=== PATIENT | female | born 1945 | race Caucasian/White ===

== ENCOUNTER 2016-11-29 11:19 | Emergency (ER) ==
[~2016-11-29 11:19] MED LIST: ANECTINE IVP STA
[2016-11-29] MEDS ORDERED: SODIUM CHLORIDE 1,000 ML IV STA (11:25)
[2016-11-29] MEDS ORDERED: DUONEB NEB STA (11:26)
[2016-11-29] MEDS ORDERED: XOPENEX 1.25 MG NEB STA (11:26)
[2016-11-29 11:28] VITALS: TEMP 98.4; BMI 25.9
[2016-11-29] MEDS ORDERED: ROCEPHIN 1 GM in SODIUM CHLORIDE 100 ML IV STA (11:32)
[2016-11-29] MEDS ORDERED: URO-JET MUCOUSMEMB STA (11:32)
[2016-11-29 11:56] LABS: BASOPHILS # (AUTO) 0.1 K/uL (0-0.2); BASOPHILS % (AUTO) 0.9 % (0.0-3.0); EOSINOPHILS # (AUTO) 0.1 K/ul (0.0-0.7); EOSINOPHILS % (AUTO) 0.9 % (0.0-7.0); HEMATOCRIT 48.8 % (37.0-47.0); HEMOGLOBIN 13.9 g/dl (12.0-16.0); IMMATURE GRANULOCYTE % (AUTO) 2.2 % (0.0-5.0); LYMPHOCYTES # (AUTO) 1.4 K/uL (0.60-3.4); LYMPHOCYTES % (AUTO) 18.3 (10.0-50.0); MEAN CORPUSCULAR HEMOGLOBIN 31.7 pg (27.0-31.0); MEAN CORPUSCULAR HGB CONC 28.5 (31.8-35.4); MEAN CORPUSCULAR VOLUME 111.4 fl (81.0-99.0); MONOCYTES # (AUTO) 0.5 K/uL (0.4-2.0); MONOCYTES % (AUTO) 6.6 (0-10); NEUTROPHILS # (AUTO) 5.4 K/ul (2.0-6.9); NEUTROPHILS % (AUTO) 71.1; PLATELET COUNT 184 10^3/uL (140-440); RED BLOOD COUNT 4.38 10^6/ul (4.20-5.40); WHITE BLOOD COUNT 7.63 K/ul (4.6-10.2)
[2016-11-29 12:21] LABS: ANISOCYTOSIS NOT PRESENT (NOT PRESENT)
[2016-11-29 12:22] LABS: RBC MORPHOLOGY COMMENT Y; STOMATOCYTES 2+ (NOT PRESENT)
[2016-11-29] MEDS ORDERED: ROCEPHIN ONE (12:22)
[2016-11-29] MEDS ORDERED: VERSED ONE (12:23)
[2016-11-29] MEDS ORDERED: NORCURON ONE (12:24)
[2016-11-29] MEDS ORDERED: VERSED IVP STA (12:25)
[2016-11-29] MEDS ORDERED: DIPRIVAN 20 ML VIAL IVP STA (12:25)
[2016-11-29] MEDS ORDERED: EPHEDRINE SULFATE IVP STA (12:25)
[2016-11-29] MEDS ORDERED: ANECTINE IVP STA ×2 (12:25)
--- NOTE | 2016-11-29 12:28 | ED.PDOC ---
General ED Provider: Dr. DAVID MAIN-ER Chief Complaint: Fall Stated Complaint: she has been confused--not breathing well--arrived cyanotic -- o2 sats 60s Time Seen by Physician: 11:20 Mode of Arrival: Ambulance Information Source: Patient, Family, EMT Exam Limitations: No limitations Primary Care Provider: ANA VILLATORO Nursing and Triage Documentation Reviewed and Agree: Yes Respiratory Complaint Exam - Shortness of Air Complaint/Exam Onset/Duration: unknown Symptoms Are: Still present Timing: Constant Initial Severity: Moderate Current Severity: Severe Character: Reports: Dyspnea at rest, Dyspnea on exertion Aggravating: Reports: None Alleviating: Reports: EMS treatment, Oxygen Associated Signs and Symptoms: Reports: Rapid breathing, Labored breathing Related History: Reports: Similar episode History of Healthcare-Acquired Pneumonia: No Pseudomonas Risk Factors: Reports: Chronic Lung Disease Tuberculosis Risk Factors: Reports: Chronic Resp. Faliure Home Oxygen Use: Yes Recent Stress Test: No Recent Echo/LV Function: No Respiratory Distress: Severe Stridor Present: No Tracheal Deviation: No Subcutaneous Emphysema: No Accessory Muscle Use: Yes Diminished Breath Sounds: No Prolonged Expiratory Phase: Yes Unable to Speak Full Sentences: Yes Fatigue: Yes Leg Swelling: No Lola's Sign Present: No Grunting Respirations: No Kussmaul Respirations: No Differential Diagnoses: COPD Exacerbation Quality Indicator For Non-Traumatic Chest Pain/Syncope: EKG Performed Quality Indicators For Pneumonia/CAP: Blood Cultures-SCU admit, Antibiotics in 6hr-admit, SpO2 assessed, Empiric Antibiotic Rx, Vital signs, Mental status assessed Review of Systems - Review Of Systems Constitutional: Reports: No symptoms Eyes: Reports: No symptoms Ears, Nose, Mouth, Throat: Reports: No symptoms Respiratory: Reports: Short of air Cardiac: Reports: No symptoms GI: Reports: No symptoms : Reports: No symptoms Musculoskeletal: Reports: No symptoms Skin: Reports: No symptoms Neurological: Reports: Cognitive dysfunction Endocrine: Reports: No symptoms Hematologic/Lymphatic: Reports: No symptoms All Other Systems: Reviewed and Negative Past Medical History - Past Medical History Endocrine: Reports: Unknown Cardiovascular: Reports: Unknown Respiratory: Reports: COPD Hematological: Reports: Unknown Gastrointestinal: Reports: Unknown Genitourinary: Reports: Unknown Neuro/Psych: Reports: Unknown Musculoskeletal: Reports: Unknown Cancer: Reports: Unknown Last Menstrual Period: menopause - Surgical History General Surgical History: Reports: Unknown - Family History Family History: Reports: Unknown - Social History Smoking Status: Current some day smoker, Light tobacco smoker Hx Substance Use: No Alcohol Screening: None Lives: With family Physical Exam - Physical Exam Appearance: Ill-appearing Eyes: FAVIOLA, EOMI, Conjunctiva clear ENT: Ears normal Neck: Supple Respiratory: Breath sounds equal, Breath sounds diminished, Retractions Cardiovascular: RRR GI/: Soft, Nontender, No masses, Bowel sounds normal, No Organomegaly Musculoskeletal: Normal strength, ROM intact, No edema, No calf tenderness Skin: Warm, Dry, Normal color Neurological: Sensation intact, Motor intact, Reflexes intact, Cranial nerves intact, Alert, Oriented Psychiatric: Affect appropriate, Mood appropriate Procedures - Intubation Indication: Present: Respiratory Insufficiency, Altered Mental Status Time of Intubation: 12:30 Type of Tube Used: Endotracheal Cricoid Pressure Used: Yes Tube Guevara Used: Yes Number of Attempts: 1 Suction Used: Yes Glidescope Used: Yes CO2 Detector Used: Yes Lung Sounds Equal Bilaterally: Yes Intubation Complications: Present: No complications Tube Inserted By: anushka jose Tube Placement Verified by X-ray: Yes Critical Care Note - Critical Care Note Total Time (mins): 30 Course - Course Hematology/Chemistry: 11/29/16 11:40 Orders, Labs, Meds: Lab Review 11/29/16 11:40 WBC 7.63 RBC 4.38 Hgb 13.9 Hct 48.8 H MCV 111.4 H MCH 31.7 H MCHC 28.5 L RDW Coeff of Tessa 12.6 Plt Count 184 Immature Gran % (Auto) 2.2 Neut % (Auto) 71.1 Lymph % (Auto) 18.3 [place] % (Auto) 6.6 Eos % (Auto) 0.9 Baso % (Auto) 0.9 Immature Gran # (Auto) 0.2 Neut # 5.4 Lymph # 1.4 [place] # 0.5 Eos # 0.1 Baso # 0.1 Macrocytosis 2+ Stomatocytes 2+ RBC Morph Comment Y Lactic Acid 13.7 B-Natriuretic Peptide 121 H Procalcitonin < 0.05 Orders Category Date Time Status ABG DRAW REQUEST Stat CARDIO 11/29/16 11:24 Ordered EKG-(ED ONLY) Stat CARDIO 11/29/16 11:24 Ordered NEBULIZER TREATMENT Stat CARDIO 11/29/16 11:26 Ordered TRANSFER TO OUTSIDE FACILITY .TO [facility] 11/29/16 12:41 Active ([place]) WRITE TRANSFER/SBAR NOTE ONCE CARE 11/29/16 12:42 Active DISCHARGE ASSESSMENT ONCE DISCHARGE 11/29/16 12:42 Active WRITE DISCHARGE NOTE ONCE DISCHARGE 11/29/16 12:42 Active [place] [ED CATHETER INSERTION AND CARE] .ONCE EMERGENCY 11/29/16 11:32 Active IV [ED IV/MEDIPORT/POWERPORT] .ONCE EMERGENCY 11/29/16 11:25 Active ABG Stat LAB 11/29/16 11:24 Ordered B-TYPE NATRIURETIC PEPTIDE Stat LAB 11/29/16 11:40 Completed BLOOD CULTURE Stat LAB 11/29/16 11:40 Received CBC W/ AUTO DIFF Stat LAB 11/29/16 11:40 Completed COMPREHENSIVE METABOLIC PANEL Stat LAB 11/29/16 11:40 Received CREATINE KINASE Stat LAB 11/29/16 11:40 Received D-DIMER Stat LAB 11/29/16 11:40 Received LACTIC ACID Stat LAB 11/29/16 11:40 Completed PROCALCITONIN Stat LAB 11/29/16 11:40 Completed RBC MORPHOLOGY Stat LAB 11/29/16 11:40 Completed TROPONIN I Stat LAB 11/29/16 11:40 Received URINALYSIS C & S IF INDICATED Stat LAB 11/29/16 11:25 Uncollected 0.9 % Sodium Chloride [Saline Flush] MEDS 11/29/16 11:25 Active 1 syr IVF PRN PRN Ceftriaxone Sodium [Rocephin] MEDS 11/29/16 12:22 Discontinued 1 gm .ROUTE .STK-MED ONE Ceftriaxone Sodium [Rocephin] 1 gm MEDS 11/29/16 11:32 Discontinued 0.9 % Sodium Chloride [Sodium Chloride] 100 ml IV ONCE Ipratropium/Albuterol Neb [Duoneb] MEDS 11/29/16 11:26 Discontinued 1 vial NEB ONCE STA Levalbuterol HCl [Xopenex 1.25 mg] MEDS 11/29/16 11:26 Discontinued 1 vial NEB ONCE STA Lidocaine HCl [Uro-Jet] MEDS 11/29/16 11:32 Discontinued 10 ml MUCOUSMEMB ONCE STA Midazolam HCl Inj [Versed] MEDS 11/29/16 12:23 Discontinued 5 mg .ROUTE .STK-MED ONE Sodium Chloride 0.9% [Sodium Chloride] 1,000 ml MEDS 11/29/16 11:25 Active IV 100 mls/hr Vecuronium [place] [Norcuron] MEDS 11/29/16 12:24 Discontinued 10 mg .ROUTE .STK-MED ONE CT ABDOMEN/PELVIS WO CONTRAST Stat RADS 11/29/16 11:[address] CERVICAL SPINE W/O CONTRAST Stat RADS 11/29/16 11:[address] CHEST W/O CONTRAST Stat RADS 11/29/16 11:[address] HEAD W/O CONTRAST Stat RADS 11/29/16 11:[address] LUMBAR SPINE W/O CONTRAST Stat RADS 11/29/16 11:[address] PELVIS W/O CONTRAST Stat RADS 11/29/16 11:[address] THORACIC SPINE W/O CONTRAST Stat RADS 11/29/16 11:27 Stop Req CXR [CHEST, 1V AP ONLY] Stat RADS 11/29/16 12:15 Ordered Medications Generic Name Dose Route Start Last Admin Trade Name Freq PRN Reason Stop Dose Admin Sodium Chloride 1,000 mls @ 100 mls/hr 11/29/16 11:25 11/29/16 11:44 Sodium Chloride IV 11/29/16 21:24 100 mls/hr .Q10H STA Administration Sodium Chloride 1 syr 11/29/16 11:25 Saline Flush IVF PRN PRN To flush IV Discontinued Medications Generic Name Dose Route Start Last Admin Trade Name Freq PRN Reason Stop Dose Admin Albuterol/Ipratropium 1 vial 11/29/16 11:26 Duoneb NEB 11/29/16 11:27 ONCE STA Ceftriaxone Sodium 1 gm/ 100 mls @ 100 mls/hr 11/29/16 11:32 Sodium Chloride IV 11/29/16 12:31 ONCE STA Levalbuterol HCl 1 vial 11/29/16 11:26 Xopenex 1.25 Mg NEB 11/29/16 11:27 ONCE STA Lidocaine HCl 10 ml 11/29/16 11:32 Uro-Jet MUCOUSMEMB 11/29/16 11:33 ONCE STA Vital Signs: Temp Pulse Resp BP Pulse Ox 11/29/16 12:36 105 H 121/90 100 11/29/16 11:19 98.4 F 95 H 32 H 135/80 71 L Departure - Departure Time of Disposition: 12:45 Disposition: TSF SHORT-TRM HOSP Discharge Problem: Acute respiratory failure Qualifiers: Respiratory failure complication: hypercapnia Qualifier Code: (J96.02) Acute respiratory failure with hypercapnia Instructions: COPD (Chronic Obstructive Pulmonary Disease) (ED) Condition: Stable Pt referred to PMD for follow-up: Yes Allergies/Adverse Reactions: Allergies Sulfa (Sulfonamide Antibiotics) Adverse Reaction (Verified 11/29/16 11:42) Home Medications: Ambulatory Orders Albuterol Sulfate [Proair Hfa] 2 puff INH QID PRN 06/04/14 Docusate Sodium [Colace] 100 mg PO DAILY 06/04/14 Fluticasone/Salmeterol 500/50 [Advair 500-50 Diskus] 1 puff INH BID 06/04/14 Ipratropium [place] [Atrovent Hfa] 2 puff IH QID 06/04/14 Levothyroxine Sodium [Synthroid] 112 mcg PO DAILY 06/04/14 Oxybutynin Chloride [Ditropan Xl] 5 mg PO DAILY 06/04/14 Aspirin [Aspirin EC] 81 mg PO DAILYWM 06/05/14 Calcium Carb & Citrate/Vit D3 [Calcium + Vitamin D3 Caplet] 1 each PO BID Transfer Form Completed: Yes Disposition Discussed With: Family
[2016-11-29 12:40] VITALS: BP 121/90
--- NOTE | 2016-11-29 12:44 | ED.PDOC ---
Procedures - Intubation Time of Intubation: 12:30 Medications: Yes: Succinylcholine (80mg), Versed (2.5mg), Propofol (30mg), Other (10mg ivp 1231) Type of Tube Used: Endotracheal Tube Size: 7 Cricoid Pressure Used: No Tube Guevara Used: Yes Position of Tube at Lip: 21cm Number of Attempts: 1 Suction Used: Yes Glidescope Used: Yes ([place]) CO2 Detector Used: Yes Lung Sounds Equal Bilaterally: Yes Intubation Complications: Present: No complications Tube Inserted By: tabby otero CRNA Tube Placement Verified by X-ray: Yes Conscious Sedation - Pre-op Assessment Weight: 156 lb 4.8 oz Surgical History: TONSILS/ADENOIDS - Medical History Past Medical History: Hypertension, Thyroid, COPD, Migraines Other History: OVERACTIVE BLADDER. - Physical Exam Heart Rate/Rhythm: Regular Rhythm
[2016-11-29 12:53] LABS: ALANINE AMINOTRANSFERASE 10 U/L (12-78); ALBUMIN 3.7 g/dL (3.4-5.0); ALBUMIN/GLOBULIN RATIO 1.06; ALKALINE PHOSPHATASE 68 U/L (53-141); ANION GAP 14.4; ASPARTATE AMINO TRANSFERASE 15 U/L (15-37); BILIRUBIN,TOTAL 0.67 mg/dL (0.00-1.20); BLOOD UREA NITROGEN 13 mg/dL (7-18); BUN/CREATININE RATIO 24.07; CALCIUM 9.1 mg/dL (8.2-10.2); CHLORIDE 89 mmol/L (98-107); CREATINE KINASE 29 U/L; CREATININE 0.54 mg/dL (0.60-1.30); GLUCOSE 163 mg/dL (82-115); POTASSIUM 4.4 mmol/L (3.5-5.10); SODIUM 144 mmol/L (136-145); TOTAL PROTEIN 7.2 g/dL (5.8-8.1)
[2016-11-29 12:59] LABS: CARBON DIOXIDE 45 mmol/L (23-31)
[2016-11-29 13:06] LABS: ABG PH 7.129 (7.35-7.45)
--- NOTE | 2016-11-29 13:12 | DI ---
EXAM: Single view chest. HISTORY: Respiratory failure COMPARISON: 06/05/2014. FINDINGS: Endotracheal tube is in place with tip 6.2 cm above the shante. The heart appears on the upper limits of normal in size. The pulmonary vascularity is accentuated by the patient rotation. The bilateral costophrenic angles are blunted. Bibasilar patchy airspace opacities are present. No evidence of pneumothorax. IMPRESSION: Satisfactory appearing endotracheal tube. Probable small bilateral pleural effusions with associated atelectasis or pneumonia.
--- NOTE | 2016-11-29 13:15 | CT ---
Exam: CT brain without contrast Clinical indication: Fall with head injury. Comparison: None available. TECHNIQUE: Axial unenhanced CT images from the skull base through the brain were obtained. Coronal and sagital reformats were performed. Findings: There is no evidence of intra or extra-axial hemorrhage. Patient is intubated. There is mild periventricular hypodensities consistent with mild chronic small vessel ischemic contreras es.There is no evidence of mass, infarct or midline shift. The ventricles and basilar cisterns are within normal limits. The visualized paranasal sinuses and mastoid air cells are clear. The visualized bony structures are unremarkable. Impression: 1. No acute intracranial abnormality. 2. Mild chronic small vessel ischemic changes.
--- NOTE | 2016-11-29 13:17 | CT ---
EXAM: CT cervical spine without contrast HISTORY: Fall. TECHNIQUE: Multi-slice transaxial helical with coronal and sagittal reformatted views. COMPARISON: None FINDINGS: There is accentuated cervical lordosis. The visualized vertebral body heights appear maintained. T here is mild multilevel disc space narrowing with tiny endplate osteophytes. The articular facets a ppear aligned. No evidence of spondylolisthesis or spondylolysis is seen. No evidence of cervical spine fracture is seen. The craniocervical junction appears maintained. The osseous central canal appears patent. No significant neural foraminal narrowing is seen. There is emphysematous changes of the upper lungs. There is interlobular septal thickening througho ut the upper lung zones. The endotracheal tube is in place. Secretions are present within the oral cavity and hypopharynx. IMPRESSION: 1. No acute fracture or lithesis. 2. Mild multilevel cervical spondylosis. 3. Accentuated cervical lordosis. 4. Pulmonary emphysema with diffuse interlobular septal thickening. Differential includes intersti tial edema versus interstitial pneumonitis. 5. Endotracheal tube in place with secretions in the oral cavity and hypopharynx.
== END 2016-11-29 13:10 | disposition short-term general hospital (02) ==
LOC: ED 11:19
DX: J96.02 Acute respiratory failure with hypercapnia (principal); R41.0 Disorientation, unspecified; J44.9 Chronic obstructive pulmonary disease, unspecified; Z79.899 Other long term (current) drug therapy; R06.00 Dyspnea, unspecified; F17.210 Nicotine dependence, cigarettes, uncomplicated; W19.XXXA Unspecified fall, initial encounter
CPT/HCPCS: 36415; 80053; 82550; 82803; 83605; 83880; 84145; 84484; 85008; 85025; 85379; 87040; 93005; 93010; 94640; 94660; 96361; 96365; 96375; 96376; 99291; 99292

== ENCOUNTER 2016-11-29 13:25 | Outpatient (CLI) ==
[2016-11-29 11:28] VITALS: BMI 25.9
== END 2016-11-29 13:26 | disposition home or self-care (01) ==
LOC: AMBL 13:25
PROVIDERS: ATTEND Family Medicine
DX: J96.00 Acute respiratory failure, unspecified whether with hypoxia or hypercapnia (principal)

== ENCOUNTER 2017-03-08 23:16 | Inpatient (IN) | payer OTHER ==
[2017-03-08] MEDS ORDERED: SOLU-MEDROL 125 MG IVP STA (23:20)
[2017-03-08] MEDS ORDERED: XOPENEX 1.25 MG NEB STA (23:22)
[2017-03-08] MEDS ORDERED: DUONEB NEB STA (23:22)
--- NOTE | 2017-03-08 23:23 | ED.PDOC ---
General ED Provider: Dr. DAVID MAIN-ER Chief Complaint: Shortness of Air Stated Complaint: she cant breathe Time Seen by Physician: 23:23 Mode of Arrival: Ambulance Information Source: EMT Exam Limitations: Clinical condition Primary Care Provider: ANA PEACOCK Nursing and Triage Documentation Reviewed and Agree: Yes Respiratory Complaint Exam - Respiratory Complaint/Exam Onset/Duration: unknown Symptoms Are: Still present Timing: Constant Initial Severity: Mild Current Severity: Moderate Location: Chest Character: Reports: Non-productive cough Alleviating: Reports: Bronchodilators Associated Signs and Symptoms: Reports: Dyspnea, Decreased oral intake. Denies : Rapid breathing, Fever, Chills, Chest pain, Pleuritic chest pain, Wheezing, Hemoptysis, Dizziness, Calf pain, Calf swelling, Edema, URI, Nasal congestion, Hoarseness, Sinus discomfort, Vomiting, Sore throat, Weight loss, Increased thirst, Increased appetite, Increased urination Related History: Reports: Similar episode History of Healthcare-Acquired Pneumonia: Lives at intermediate Pulmonary Embolism Risk Factors: None Pseudomonas Risk Factors: Reports: Chronic Lung Disease Tuberculosis Risk Factors: Reports: Chronic Resp. Faliure Status Asthmaticus Risk Factors: Reports: None Home Oxygen Use: Yes Recent Stress Test: No Recent Echo/LV Function: No Current Antibiotic Use: No Current Asthma Medication Use: No Respiratory Distress: None Inadequate Respiratory Effort: No Dysphagia Present: No Stridor Present: No JVD Present: No Accessory Muscle Use: No Retractions: Supraclavicular Diminished Breath Sounds: Yes Sinus Tenderness: None Grunting Respirations: No Kussmaul Respirations: No Differential Diagnoses: COPD Exacerbation, Pneumonia Non-Traumatic Chest Pain Syncope: EKG Performed Review of Systems - Review Of Systems Constitutional: Reports: No symptoms Eyes: Reports: No symptoms Ears, Nose, Mouth, Throat: Reports: No symptoms Respiratory: Reports: Cough, Short of air Cardiac: Reports: No symptoms GI: Reports: No symptoms : Reports: No symptoms Musculoskeletal: Reports: No symptoms Skin: Reports: No symptoms Neurological: Reports: No symptoms Endocrine: Reports: No symptoms Hematologic/Lymphatic: Reports: No symptoms All Other Systems: Reviewed and Negative Past Medical History - Past Medical History Previously Healthy: Yes Endocrine: Reports: Unknown Cardiovascular: Reports: Unknown Respiratory: Reports: COPD Hematological: Reports: Unknown Gastrointestinal: Reports: Unknown Genitourinary: Reports: Unknown Neuro/Psych: Reports: Unknown Musculoskeletal: Reports: Unknown Cancer: Reports: Unknown - Surgical History General Surgical History: Reports: Unknown - Family History Family History: Reports: Unknown - Social History Smoking Status: Current some day smoker, Light tobacco smoker Hx Substance Use: No Alcohol Screening: None Lives: In Skilled Nursing Physical Exam - Physical Exam Appearance: Well-appearing Ill-appearing: Moderate Eyes: FAVIOLA, EOMI, Conjunctiva clear ENT: Ears normal, Nose normal, Oropharynx normal Neck: Supple Respiratory: Airway patent, Crackles Cardiovascular: RRR, Pulses normal, No rub, No murmur GI/: Soft, Nontender, No masses, Bowel sounds normal, No Organomegaly Musculoskeletal: Normal strength, ROM intact, No edema, No calf tenderness Skin: Warm, Dry, Normal color Neurological: Sensation intact, Motor intact, Reflexes intact, Cranial nerves intact, Alert, Oriented, Disoriented Psychiatric: Affect appropriate, Mood appropriate Interpretation - Radiology Interpretation Radiology Interpretation By: Radiologist Radiology Results: Positive Exam Interpreted: CT Scan - EKG Interpretation Time of EKG #1: 01:41 Rate: Normal Rhythm: Sinus Ectopy: None [place]: NL ST Segment: Normal Physician Notification - Case Discussed Physician Notified: dr peacock Time of Notification: 01:30 Critical Care Note - Critical Care Note Total Time (mins): 0 Course - Course Hematology/Chemistry: 03/08/17 00:05 03/08/17 00:05 Orders, Labs, Meds: Lab Review 03/08/17 03/08/17 03/09/17 00:05 23:19 00:30 WBC 8.19 RBC 4.46 Hgb 13.7 Hct 47.2 H MCV 105.8 H MCH 30.7 MCHC 29.0 L RDW Coeff of Tessa 13.0 Plt Count 243 Immature Gran % (Auto) 1.1 Neut % (Auto) 69.0 Lymph % (Auto) 19.4 [place] % (Auto) 9.8 Eos % (Auto) 0.1 Baso % (Auto) 0.6 Immature Gran # (Auto) 0.1 Neut # 5.7 Lymph # 1.6 [place] # 0.8 Eos # 0.0 Baso # 0.1 Puncture Site Lb Lb O2 Saturation 62.0 L ABG pH 7.186 L* 7.158 L* ABG pCO2 113.1 H 130.0 H ABG pO2 43.0 L* 109.0 H ABG HCO3 42.8 H ABG Total CO2 46 H ABG Base Excess 14 H Wilian Test + + O2 Delivery Device Nc Bipap Oxygen Liter Flow 2.00 FiO2 % 28.0 100.0 Sodium 141 Potassium 5.0 Chloride 94 L Carbon Dioxide 39 H Anion Gap 13.0 BUN 33 H Creatinine 0.74 Estimated GFR (MDRD) 77.00 BUN/Creatinine Ratio 44.59 Glucose 149 H Lactic Acid 9.2 Calcium 9.0 Total Bilirubin 0.70 AST 55 H ALT 53 Alkaline Phosphatase 70 Total Creatine Kinase 15 Troponin I 0.2150 B-Natriuretic Peptide 2765 H Total Protein 6.7 Albumin 3.3 L Globulin 3.4 Albumin/Globulin Ratio 0.97 Procalcitonin < 0.05 Orders Category Date Time Status ABG DRAW REQUEST Stat CARDIO 03/08/17 23:19 Completed BIPAP Routine CARDIO 03/08/17 23:55 Active EKG-(ED ONLY) Stat CARDIO 03/08/17 23:19 Completed NEBULIZER TREATMENT Stat CARDIO 03/08/17 23:22 Completed NPO REMINDER: IMAGING ONCE CARE 03/09/17 00:05 Completed ED IV/MEDIPORT/POWERPORT .ONCE EMERGENCY 03/08/17 23:20 Active ABG Routine LAB 03/09/17 00:30 Completed ABG Stat LAB 03/08/17 23:19 Completed BLOOD CULTURE Stat LAB 03/08/17 00:05 Received BNP [B-TYPE NATRIURETIC PEPTIDE] Stat LAB 03/08/17 00:05 Completed CBC W/ AUTO DIFF Stat LAB 03/08/17 00:05 Completed COMPREHENSIVE METABOLIC PANEL Stat LAB 03/08/17 00:05 Completed CREATINE KINASE Stat LAB 03/08/17 00:05 Completed LACTIC ACID Stat LAB 03/08/17 00:05 Completed PROCALCITONIN Stat LAB 03/08/17 00:05 Completed TROPONIN I Stat LAB 03/08/17 00:05 Completed 0.9 % Sodium Chloride [Saline Flush] MEDS 03/08/17 23:20 Ordered 1 syr IVF PRN PRN Ipratropium/Albuterol Neb [Duoneb] MEDS 03/08/17 23:22 Discontinued 1 vial NEB ONCE STA Levalbuterol HCl [Xopenex 1.25 mg] MEDS 03/08/17 23:22 Discontinued 1 vial NEB ONCE STA Methylprednisolone Sod Succ/Pf [Solu-Medrol 125 mg] MEDS 03/08/17 23:20 Discontinued 125 mg IVP ONCE STA Piperacillin Sodium/Tazobactam [Zosyn 3.375 gm] 3.375 MEDS 03/09/17 00:14 Discontinued gm 0.9 % Sodium Chloride [Sodium Chloride] 100 ml IV ONCE Sodium Chloride 0.9% [Sodium Chloride] 1,000 ml MEDS 03/09/17 00:14 Active IV 30 mls/hr Vancomycin HCl [Vancomycin] 1 gm MEDS 03/09/17 00:14 Discontinued 0.9 % Sodium Chloride [Sodium Chloride] [address] CHEST W/CONTRAST Stat RADS 03/09/17 00:[address] CHEST W/O CONTRAST Stat RADS 03/08/17 23:22 Completed Medications Generic Name Dose Route Start Last Admin Trade Name Freq PRN Reason Stop Dose Admin Sodium Chloride 1,000 mls @ 30 mls/hr 03/09/17 00:14 03/09/17 00:21 Sodium Chloride IV 03/10/17 09:33 30 mls/hr .[id number] STA Administration Sodium Chloride 1 syr 03/08/17 23:20 Saline Flush IVF PRN PRN To flush IV Discontinued Medications Generic Name Dose Route Start Last Admin Trade Name Freq PRN Reason Stop Dose Admin Albuterol/Ipratropium 1 vial 03/08/17 23:22 03/08/17 23:30 Duoneb NEB 03/08/17 23:23 1 vial ONCE STA Administration Piperacillin Sod/Tazobactam 100 mls @ 100 mls/hr 03/09/17 00:14 Sod 3.375 gm/ Sodium Chloride IV 03/09/17 01:13 ONCE STA Vancomycin HCl 1 gm/ Sodium 250 mls @ 250 mls/hr 03/09/17 00:14 03/09/17 00: 27 Chloride IV 03/09/17 01:13 250 mls/hr ONCE STA Administration Levalbuterol HCl 1 vial 03/08/17 23:22 03/08/17 23:40 Xopenex 1.25 Mg NEB 03/08/17 23:23 1 vial ONCE STA Administration Methylprednisolone Sodium Succinate 125 mg 03/08/17 23:20 03/08/17 23:36 Solu-Medrol 125 Mg IVP 03/08/17 23:21 125 mg ONCE STA Administration family is aware of poor prognosis and noted dnr status--they indicate they only want comfort measures for her Vital Signs: Temp Pulse Resp BP Pulse Ox 03/08/17 23:50 62 L 03/08/17 23:23 98.1 F 74 40 H 166/82 H 89 L Departure - Departure Time of Disposition: 01:41 Disposition: ADMITTED INPATIENT Discharge Problem: Acute respiratory failure Qualifiers: Respiratory failure complication: hypercapnia Qualifier Code: (J96.02) Acute respiratory failure with hypercapnia Pneumonia Qualifiers: Pneumonia type: due to unspecified organism Laterality: bilateral Lung location : unspecified part of lung Qualifier Code: (J18.9) Pneumonia, unspecified organism Condition: Poor Pt referred to PMD for follow-up: Yes Allergies/Adverse Reactions: Allergies Sulfa (Sulfonamide Antibiotics) Adverse Reaction (Verified 11/29/16 11:42) Home Medications: Ambulatory Orders Albuterol Sulfate [Proair Hfa] 2 puff INH QID PRN 06/04/14 Docusate Sodium [Colace] 100 mg PO DAILY 06/04/14 Fluticasone/Salmeterol 500/50 [Advair 500-50 Diskus] 1 puff INH BID 06/04/14 Ipratropium [place] [Atrovent Hfa] 2 puff IH QID 06/04/14 Levothyroxine Sodium [Synthroid] 112 mcg PO DAILY 06/04/14 Oxybutynin Chloride [Ditropan Xl] 5 mg PO DAILY 06/04/14 Aspirin [Aspirin EC] 81 mg PO DAILYWM 06/05/14 Calcium Carb & Citrate/Vit D3 [Calcium + Vitamin D3 Caplet] 1 each PO BID Disposition Discussed With: Family
[2017-03-08 23:30] VITALS: BMI 36.6
[2017-03-08 23:48] LABS: ABG PCO2 113.1 mmHg (35-45); ABG PH 7.186 (7.35-7.45)
[2017-03-08 23:49] LABS: ABG BASE EXCESS 14 (-2.0-2.0); ABG HCO3 42.8 (22.0-26.0); ABG TCO2 46 (22.0-28.0)
--- NOTE | 2017-03-09 00:07 | CT ---
EXAM: CT chest without intravenous contrast 03/08/2017. Sagittal and coronal reformatted images ob tained HISTORY: Dyspnea COMPARISON: 11/29/2016 FINDINGS: Moderate cardiomegaly. No pericardial effusion. There is aneurysmal dilatation of the ascending thoracic aorta up to approximately 5.3 cm diameter. Aortic dissection flap is present. This process is not well characterized due to lack of intravenou s contrast. This appears to originate within the ascending thoracic aorta and likely represents a [place] type A dissection. The dissection flap appears to extend through the chest and into the upper abdomen. The distal exten t is not characterized on this study. Severe emphysematous change. Consolidation is present within the lingula and left lower lobe. Consolidation is present in the dep endent aspect of the right lower lobe. Small right pleural effusion. IMPRESSION: 1. Aortic dissection is present throughout the thoracic aorta and appears to extend into the abdom en. This is not well characterized due to the lack of intravenous contrast. This appears to origin ate within the ascending thoracic aorta and likely represents a [place] type A dissection. 2. Aneurysmal dilatation of the ascending thoracic aorta up to 5.3 cm diameter. 3. Moderate cardiomegaly. 4. Multifocal bilateral pulmonary consolidation likely due to multifocal pneumonia superimposed on a background chronic lung disease. Severe emphysema. 5. Small right pleural effusion. 6. Nondisplaced sternal fracture with callus formation. This is likely subacute. Severe kyphotic curvature of the thoracic spine. Critical FINDINGS: Aortic dissection as described above. Aneurysmal dilatation of the ascending th oracic aorta. No prior CT images for comparison. Urgent workup is recommended. CT angiogram chest , abdomen pelvis with dedicated aortic protocol is recommended. Vascular surgical consultation is a lso recommended. Additional details as above. Critical FINDINGS: I personally discussed these findings Dr. Denis, 03/08/2017, 11:57 p.m. report faxed to [facility] emergency department at the time of interpretation.
[2017-03-09 00:12] LABS: BASOPHILS # (AUTO) 0.1 K/uL (0-0.2); BASOPHILS % (AUTO) 0.6 % (0.0-3.0); EOSINOPHILS % (AUTO) 0.1 % (0.0-7.0); HEMATOCRIT 47.2 % (37.0-47.0); HEMOGLOBIN 13.7 g/dl (12.0-16.0); IMMATURE GRANULOCYTE % (AUTO) 1.1 % (0.0-5.0); LYMPHOCYTES # (AUTO) 1.6 K/uL (0.60-3.4); LYMPHOCYTES % (AUTO) 19.4 (10.0-50.0); MEAN CORPUSCULAR HEMOGLOBIN 30.7 pg (27.0-31.0); MEAN CORPUSCULAR VOLUME 105.8 fl (81.0-99.0); MONOCYTES # (AUTO) 0.8 K/uL (0.4-2.0); MONOCYTES % (AUTO) 9.8 (0-10); NEUTROPHILS # (AUTO) 5.7 K/ul (2.0-6.9); PLATELET COUNT 243 10^3/uL (140-440); RED BLOOD COUNT 4.46 10^6/ul (4.20-5.40); WHITE BLOOD COUNT 8.19 K/ul (4.6-10.2)
[2017-03-09] MEDS ORDERED: SODIUM CHLORIDE 1,000 ML IV STA (00:14)
[2017-03-09] MEDS ORDERED: ZOSYN 3.375 GM 3.375 GM in SODIUM CHLORIDE 100 ML IV STA (00:14)
[2017-03-09] MEDS ORDERED: VANCOMYCIN 1 GM in SODIUM CHLORIDE 250 ML IV STA (00:14)
[2017-03-09 00:37] LABS: ALBUMIN 3.3 g/dL (3.4-5.0); ALBUMIN/GLOBULIN RATIO 0.97; BILIRUBIN,TOTAL 0.7 mg/dL (0.00-1.20); BUN/CREATININE RATIO 44.59; CREATININE 0.74 mg/dL (0.60-1.30); TOTAL PROTEIN 6.7 g/dL (5.8-8.1); TROPONIN I 0.215 ng/ml (0.0000-0.4000)
[2017-03-09 00:45] LABS: ABG PH 7.158 (7.35-7.45)
--- NOTE | 2017-03-09 01:30 | CT ---
Exam: CT of the chest with contrast History: Back pain and aortic dissection on noncontrast CT Technique: [address] of the chest following intravenous contrast FINDINGS: Lung windows show consolidative change of the left upper and left lower lobes. Underlyin g severe emphysematous change. Small right pleural effusion with adjacent atelectasis. Thoracic aort ic dissection beginning just above the coronary sinuses and extending to just above the inferior mes enteric artery. The ascending thoracic aorta diameter is a maximum of 5.1 x 4.9 cm. Arch branch vess els are supplied by the true lumen. The celiac and superior mesenteric arteries are supplied by the true lumen. The renal arteries are poorly evaluated secondary to exam technique. Supply by the tr ue lumen of the main renal arteries is suspected. Chest wall shows no acute abnormalities. Kyphosis of the thoracic spine with upper thoracic wedge deformity of T7. Impression: 1. Thoracic and abdominal aortic dissection. No extravasation is seen. 2. Aneurysmal dilation of the ascending thoracic aorta measuring 5.1 x 4.9 cm. 3. Severe emphysema 4. Left upper lobe consolidative change favoring pneumonia. 5. Small right pleural effusion
[2017-03-09 02:02] LABS: ABG PH 7.141 (7.35-7.45)
[2017-03-09] MEDS: DUONEB NEB SCH ×6 (02:22→21:19)
[2017-03-09] MEDS: SODIUM CHLORIDE 1,000 ML IV SCH (03:13)
[2017-03-09 04:45] LABS: ABG PCO2 100.3 mmHg (35-45); ABG PH 7.241 (7.35-7.45)
[2017-03-09 04:46] LABS: ABG BASE EXCESS 16 (-2.0-2.0); ABG TCO2 46 (22.0-28.0)
[2017-03-09] MEDS: ZOSYN 3.375 GM 3.375 GM in SODIUM CHLORIDE 100 ML IV SCH ×4 (05:27→23:45)
[2017-03-09 06:20] LABS: BASOPHILS % (AUTO) 0.3 % (0.0-3.0); HEMATOCRIT 41.8 % (37.0-47.0); HEMOGLOBIN 12.6 g/dl (12.0-16.0); IMMATURE GRANULOCYTE % (AUTO) 0.7 % (0.0-5.0); LYMPHOCYTES # (AUTO) 0.6 K/uL (0.60-3.4); LYMPHOCYTES % (AUTO) 8.4 (10.0-50.0); MEAN CORPUSCULAR HEMOGLOBIN 30.5 pg (27.0-31.0); MEAN CORPUSCULAR HGB CONC 30.1 (31.8-35.4); MEAN CORPUSCULAR VOLUME 101.2 fl (81.0-99.0); MONOCYTES # (AUTO) 0.2 K/uL (0.4-2.0); MONOCYTES % (AUTO) 2.7 (0-10); NEUTROPHILS # (AUTO) 5.9 K/ul (2.0-6.9); NEUTROPHILS % (AUTO) 87.9; PLATELET COUNT 193 10^3/uL (140-440); RED BLOOD COUNT 4.13 10^6/ul (4.20-5.40); WHITE BLOOD COUNT 6.68 K/ul (4.6-10.2)
[2017-03-09 06:38] LABS: ALBUMIN 3.1 g/dL (3.4-5.0); ANION GAP 14.8; BILIRUBIN,TOTAL 0.45 mg/dL (0.00-1.20); BUN/CREATININE RATIO 48.48; CALCIUM 8.8 mg/dL (8.2-10.2); CREATININE 0.66 mg/dL (0.60-1.30); POTASSIUM 4.8 mmol/L (3.5-5.10); TOTAL PROTEIN 6.2 g/dL (5.8-8.1)
[2017-03-09] MEDS: SODIUM CHLORIDE IV SCH ×3 (07:52→21:12)
[2017-03-09] MEDS: VANCOMYCIN IV SCH ×3 (07:52→21:12)
[2017-03-09] MEDS ORDERED: VANCOMYCIN 1 GM in SODIUM CHLORIDE 250 ML IV SCH (09:00)
[2017-03-09] MEDS: SOLU-MEDROL 40 MG IVP SCH ×2 (09:45→21:56)
[2017-03-09] MEDS: ADVAIR 500-50 DISKUS IH SCH ×2 (10:10→21:12)
[2017-03-09 10:18] LABS: ABG BASE EXCESS 15 (-2.0-2.0); ABG HCO3 38.6 (22.0-26.0); ABG PCO2 49.8 mmHg (35-45); ABG PH 7.497 (7.35-7.45); ABG TCO2 40 (22.0-28.0)
[2017-03-09] MEDS: LOVENOX SUBCUT SCH (10:19)
[2017-03-09 13:21] LABS: ABG BASE EXCESS 16 (-2.0-2.0); ABG HCO3 38.4 (22.0-26.0); ABG PCO2 43.6 mmHg (35-45); ABG PH 7.553 (7.35-7.45)
[2017-03-09 13:22] LABS: ABG TCO2 40 (22.0-28.0)
[2017-03-09] MEDS ORDERED: TYLENOL PO PRN (17:40)
[2017-03-09] MEDS: DRONEDARONE HCL PO SCH (19:01)
[2017-03-10] MEDS: DUONEB NEB SCH ×2 (01:06→05:13)
[2017-03-10] MEDS: SODIUM CHLORIDE 1,000 ML IV SCH ×3 (03:06→22:26)
[2017-03-10] MEDS: SODIUM CHLORIDE IV SCH ×2 (04:56→19:39)
[2017-03-10] MEDS: VANCOMYCIN IV SCH ×2 (04:56→19:39)
[2017-03-10 05:29] LABS: BASOPHILS % (AUTO) 0.1 % (0.0-3.0); HEMATOCRIT 38.8 % (37.0-47.0); HEMOGLOBIN 11.4 g/dl (12.0-16.0); IMMATURE GRANULOCYTE % (AUTO) 0.7 % (0.0-5.0); LYMPHOCYTES # (AUTO) 0.6 K/uL (0.60-3.4); LYMPHOCYTES % (AUTO) 8.5 (10.0-50.0); MEAN CORPUSCULAR HEMOGLOBIN 30.1 pg (27.0-31.0); MEAN CORPUSCULAR HGB CONC 29.4 (31.8-35.4); MEAN CORPUSCULAR VOLUME 102.4 fl (81.0-99.0); MONOCYTES # (AUTO) 0.4 K/uL (0.4-2.0); MONOCYTES % (AUTO) 5.4 (0-10); NEUTROPHILS # (AUTO) 6.4 K/ul (2.0-6.9); NEUTROPHILS % (AUTO) 85.3; PLATELET COUNT 201 10^3/uL (140-440); RED BLOOD COUNT 3.79 10^6/ul (4.20-5.40); WHITE BLOOD COUNT 7.45 K/ul (4.6-10.2)
[2017-03-10] MEDS: SYNTHROID PO SCH (05:44)
[2017-03-10 05:48] LABS: ALBUMIN/GLOBULIN RATIO 1.11; ANION GAP 8.5; BILIRUBIN,TOTAL 0.38 mg/dL (0.00-1.20); BUN/CREATININE RATIO 39.65; CALCIUM 8.3 mg/dL (8.2-10.2); CREATININE 0.58 mg/dL (0.60-1.30); POTASSIUM 4.5 mmol/L (3.5-5.10); TOTAL PROTEIN 5.7 g/dL (5.8-8.1)
[2017-03-10] MEDS: DRONEDARONE HCL PO SCH ×3 (06:27→20:05)
[2017-03-10] MEDS ORDERED: DRONEDARONE HCL PO SCH (07:30)
[2017-03-10] MEDS: ZOSYN 3.375 GM 3.375 GM in SODIUM CHLORIDE 100 ML IV SCH ×5 (08:17→23:49)
[2017-03-10] MEDS ORDERED: DIGOXIN 250 MCG PO SCH (09:00)
[2017-03-10] MEDS: CARDIZEM INJ 125 MG in SODIUM CHLORIDE 100 ML IV SCH (09:00)
[2017-03-10 09:13] LABS: TROPONIN I 0.247 ng/ml (0.0000-0.4000)
[2017-03-10] MEDS: LANOXIN PO SCH (09:45)
[2017-03-10] MEDS: COLACE PO SCH ×4 (09:47→20:08)
[2017-03-10] MEDS: LOVENOX SUBCUT SCH (09:48)
[2017-03-10] MEDS: ADVAIR 500-50 DISKUS IH SCH ×2 (09:51→20:07)
[2017-03-10] MEDS: SOLU-MEDROL 40 MG IVP SCH ×2 (10:16→20:55)
[2017-03-10 11:02] LABS: ABG PH 7.391 (7.35-7.45)
[2017-03-10 11:03] LABS: ABG PCO2 63.9 mmHg (35-45)
[2017-03-10 11:06] LABS: ABG BASE EXCESS 14 (-2.0-2.0); ABG HCO3 38.8 (22.0-26.0); ABG TCO2 41 (22.0-28.0)
[2017-03-10] MEDS: XOPENEX 1.25 MG NEB SCH ×2 (11:20→17:24)
[2017-03-10 14:19] LABS: ABG PH 7.427 (7.35-7.45)
[2017-03-10 14:20] LABS: ABG BASE EXCESS 16 (-2.0-2.0); ABG HCO3 39.9 (22.0-26.0); ABG PCO2 60.6 mmHg (35-45); ABG TCO2 42 (22.0-28.0)
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
[2017-03-10] MEDS ORDERED: NON-FORMULARY MEDICATION (Rivaroxaban [Xarelto] 20 MG) PO SCH (17:00)
[2017-03-10] MEDS: XARELTO PO SCH (17:47)
[2017-03-10] MEDS: VANCOMYCIN 1 GM in SODIUM CHLORIDE 250 ML IV SCH (20:05)
[2017-03-11] MEDS: XOPENEX 1.25 MG NEB SCH ×5 (00:39→23:23)
[2017-03-11 04:44] LABS: ABG PH 7.346 (7.35-7.45)
[2017-03-11 04:45] LABS: ABG BASE EXCESS 15 (-2.0-2.0); ABG HCO3 40.7 (22.0-26.0); ABG PCO2 74.3 mmHg (35-45); ABG TCO2 43 (22.0-28.0)
[2017-03-11 05:31] LABS: BASOPHILS % (AUTO) 0.1 % (0.0-3.0); HEMATOCRIT 36.6 % (37.0-47.0); IMMATURE GRANULOCYTE % (AUTO) 0.5 % (0.0-5.0); LYMPHOCYTES # (AUTO) 0.7 K/uL (0.60-3.4); LYMPHOCYTES % (AUTO) 9.3 (10.0-50.0); MEAN CORPUSCULAR HEMOGLOBIN 30.4 pg (27.0-31.0); MEAN CORPUSCULAR HGB CONC 30.1 (31.8-35.4); MEAN CORPUSCULAR VOLUME 101.1 fl (81.0-99.0); MONOCYTES # (AUTO) 0.3 K/uL (0.4-2.0); MONOCYTES % (AUTO) 4.1 (0-10); NEUTROPHILS # (AUTO) 6.7 K/ul (2.0-6.9); PLATELET COUNT 166 10^3/uL (140-440); RED BLOOD COUNT 3.62 10^6/ul (4.20-5.40); WHITE BLOOD COUNT 7.77 K/ul (4.6-10.2)
[2017-03-11] MEDS: SYNTHROID PO SCH (05:49)
[2017-03-11] MEDS: ZOSYN 3.375 GM 3.375 GM in SODIUM CHLORIDE 100 ML IV SCH ×4 (05:49→23:12)
[2017-03-11 06:13] LABS: ALBUMIN 2.8 g/dL (3.4-5.0); ALBUMIN/GLOBULIN RATIO 1.08; ANION GAP 10.3; BILIRUBIN,TOTAL 0.45 mg/dL (0.00-1.20); BUN/CREATININE RATIO 32.07; CALCIUM 8.2 mg/dL (8.2-10.2); CREATININE 0.53 mg/dL (0.60-1.30); POTASSIUM 4.3 mmol/L (3.5-5.10); TOTAL PROTEIN 5.4 g/dL (5.8-8.1)
[2017-03-11] MEDS: VANCOMYCIN 1 GM in SODIUM CHLORIDE 250 ML IV SCH ×2 (09:02→20:15)
[2017-03-11] MEDS: ADVAIR 500-50 DISKUS IH SCH ×2 (09:03→20:15)
[2017-03-11] MEDS: COLACE PO SCH ×3 (09:04→21:37)
[2017-03-11] MEDS: LANOXIN PO SCH (09:04)
[2017-03-11] MEDS: DRONEDARONE HCL PO SCH ×2 (09:04→20:15)
[2017-03-11] MEDS: LOVENOX SUBCUT SCH (09:05)
[2017-03-11] MEDS: SOLU-MEDROL 40 MG IVP SCH ×2 (09:31→20:15)
[2017-03-11 11:16] LABS: ABG BASE EXCESS 15 (-2.0-2.0); ABG HCO3 40.7 (22.0-26.0); ABG TCO2 43 (22.0-28.0)
--- NOTE | 2017-03-11 13:24 | PN ---
DATE OF SERVICE: 03/10/17 CHIEF COMPLAINT: "She was lethargic." SUBJECTIVE: She was brought to this facility after she was found to be extremely lethargic at [facility]. She has end-stage COPD with chronic respiratory failure of a hypoxic and hypercarbic nature. In the Emergency Department she was significantly hypercarbic and her lethargy improved when she was treated with bipap. There was a concern on x-ray of possible pneumonia. She was also found on CT of the chest to have a 5.3 thoracic aneurysm with some degree of dissection. She was started on broad spectrum antibiotics, steroids, nebulized bronchodilators and cautious fluids. The patient's family have been made aware that this is a poor prognostic situation and a terminal situation certainly if the thoracic aneurysm would rupture. She is not a candidate for any invasive procedures. Yesterday, she spent some time being hypotensive; this morning she went into rapid SVT and required a Cardizem drip. We have converted her for Duoneb to Xopenex in hopes that that might help. She had an EKG that showed acute changes but cardiac enzymes were negative. She denies any chest pain. OBJECTIVE: V/S: Temperature 98.9, pulse 86, respirations 24, BP 88/46. GENERAL: Alert, oriented times three. CHEST: Markedly diminished, soft expiratory wheeze. No dullness. CARDIOVASCULAR: Grade I/ systolic murmur. No peripheral edema. GI: Obese, protuberant due to kyphosis, nontender. NEUROLOGIC: Facial symmetry. Learning [employer] Development Consultant are equal. LABS/X-RAYS: Bicarb remains high at 41; GFR has gone from 88 to 102. Proteins are low. White count 7.45, hemoglobin 11.4 compared to admission hemoglobin 13.7. ASSESSMENT: # ENCEPHALOPATHY (WITH HYPERCARBIA AND HYPOXEMIA) # ACUTE ON CHRONIC RESPIRATORY FAILURE - HYPOXIC # ACUTE ON CHRONIC RESPIRATORY FAILURE - HYPERCARBIC # CONGESTIVE HEART FAILURE - DIASTOLIC - ACUTE ON CHRONIC # CHRONIC KIDNEY DISEASE STAGE 3 # CARDIAC ARRHYTHMIAS - ATRIAL WITH RECENT SVT # GAIT DECLINE - ACUTE ON CHRONIC # THORACIC ANEURYSM - 5.3 WITH SOME DISSECTION # EKG CHANGES WITH NEGATIVE ENZYMES - OF QUESTIONABLE SIGNIFICANCE PLAN: 1. Emphasis is toward comfort care even though she desires for us to still try and treat any COPD exacerbation, pneumonia, cardiac arrhythmias and things that would be considered easy. She does not want aggressiveness. 2. Medications reviewed - continue steroids, broad spectrum antibiotics, nebulized bronchodilators. 3. Cardizem drip on hand when needed, wean as able. 4. There is not much need to involve therapy or others at this point; she will have to improve. 5. She maintains a detention bed to return to if she should survive this admission. KRISTINE
[2017-03-11] MEDS: CARDIZEM INJ 125 MG in SODIUM CHLORIDE 100 ML IV SCH ×2 (14:36→19:12)
[2017-03-11] MEDS: XARELTO PO SCH (17:32)
[2017-03-11] MEDS: SODIUM CHLORIDE 1,000 ML IV SCH (18:18)
[2017-03-12 04:39] LABS: HEMATOCRIT 34.3 % (37.0-47.0); HEMOGLOBIN 10.4 g/dl (12.0-16.0); LYMPHOCYTES # (AUTO) 0.5 K/uL (0.60-3.4); LYMPHOCYTES % (AUTO) 10.2 (10.0-50.0); MEAN CORPUSCULAR HEMOGLOBIN 30.3 pg (27.0-31.0); MEAN CORPUSCULAR HGB CONC 30.3 (31.8-35.4); MONOCYTES # (AUTO) 0.3 K/uL (0.4-2.0); MONOCYTES % (AUTO) 5.4 (0-10); NEUTROPHILS # (AUTO) 4.3 K/ul (2.0-6.9); NEUTROPHILS % (AUTO) 83.4; PLATELET COUNT 154 10^3/uL (140-440); RED BLOOD COUNT 3.43 10^6/ul (4.20-5.40); WHITE BLOOD COUNT 5.19 K/ul (4.6-10.2)
[2017-03-12 05:00] LABS: ALBUMIN 2.7 g/dL (3.4-5.0); ALBUMIN/GLOBULIN RATIO 1.17; ANION GAP 8.2; BILIRUBIN,TOTAL 0.45 mg/dL (0.00-1.20); CALCIUM 8.2 mg/dL (8.2-10.2); CREATININE 0.52 mg/dL (0.60-1.30); POTASSIUM 4.2 mmol/L (3.5-5.10)
[2017-03-12] MEDS: ZOSYN 3.375 GM 3.375 GM in SODIUM CHLORIDE 100 ML IV SCH ×3 (05:05→17:07)
[2017-03-12] MEDS: XOPENEX 1.25 MG NEB SCH ×4 (05:24→23:33)
[2017-03-12] MEDS: SYNTHROID PO SCH (05:42)
[2017-03-12] MEDS: LOVENOX SUBCUT SCH (09:05)
[2017-03-12] MEDS: LANOXIN PO SCH (09:05)
[2017-03-12] MEDS: COLACE PO SCH ×2 (09:06→21:44)
[2017-03-12] MEDS: VANCOMYCIN 1 GM in SODIUM CHLORIDE 250 ML IV SCH ×2 (09:06→21:48)
[2017-03-12] MEDS: DRONEDARONE HCL PO SCH (09:06)
[2017-03-12] MEDS: ADVAIR 500-50 DISKUS IH SCH ×2 (09:06→21:45)
[2017-03-12] MEDS: SOLU-MEDROL 40 MG IVP SCH ×2 (09:09→20:15)
--- NOTE | 2017-03-12 10:32 | PN ---
DATE OF SERVICE: 03/11/17 CHIEF COMPLAINT: "I am not breathing good." SUBJECTIVE: She lives at [facility] and [facility] ([facility]) with chronic respiratory failure, hypoxic and hypercarbic nature. She developed exacerbation or worsening and presented to the ER lethargic if not obtunded with a very high bicarb. She has been treated with steroids, nebulized bronchodilators, IV antibiotics, broadspectrum and on and off BIPAP; maybe slowly getting to where she is using the BIPAP less. She is still eating some; bedridden and resting on and off and sleeping some during the night. She denies any pain. Incidentally, she was found to have a thoracic aneurysm of at least 5.3 cm with some dissection. She had SVT on 03/10 and required Cardizem drip though cardiac enzymes were negative, EKG shows acute changes. OBJECTIVE: V/S: Temperature 98.5 and has been afebrile, pulse 68, respiratory rate 20, BP 121/50. GENERAL: No obvious distress. CHEST: Kyphotic, no wheeze. CARDIOVASCULAR: Distant S1, S2, regular without peripheral edema. GI: Nontender, protuberant due to posture and position. LABS/X-RAYS: White count today 7.7, hemoglobin 11. Creatinine 0.53, BUN 17 and blood sugar 117. I & O balance was positive and pattern for white count has been the same. Hemoglobin down from initial 13. ASSESSMENT: # Encephalopathy (with hypercarbia and hypoxemia) - resolved # Acute on chronic respiratory failure - hypoxic # Acute on chronic respiratory failure - hypercarbic # Congestive heart failure - diastolic - acute on chronic # Chronic kidney disease - Stage 3 # Cardiac arrhythmias - atrial fib with recent SVT # Gait decline - acute on chronic # Thoracic aneurysm - 5.3 with some dissection, apparently not progressing # EKGs with negative enzymes of questionable clinical significance # Nutritional decline PLAN: 1. Medications reviewed - there are no options but to continue what we are doing. 2. Continue to support respiratory status with oxygen, nasal prong, mask and when needed BIPAP/CPAP. 3. Labs reviewed - continue to monitor. 4. Discharge planning - if she improves to the point will be back to [facility]. KRISTINE
[2017-03-12] MEDS: SODIUM CHLORIDE 1,000 ML IV SCH (15:08)
--- NOTE | 2017-03-12 15:19 | DI ---
EXAM: Single view of the chest HISTORY: Respiratory failure. COMPARISON: Chest x-ray 11/29/[address] chest 03/09/2017 FINDINGS: There is leftward shift of the mediastinum with worsening consolidation/opacification of t he left hemithorax. There is blunting of the right costophrenic angle. The osseous structures are unremarkable. IMPRESSION: 1. Worsening opacification of the left hemithorax may represent worsening consolidation versus effu mickie. 2. Small right effusion and adjacent consolidation.
[2017-03-12] MEDS: XARELTO PO SCH (17:07)
[2017-03-13] MEDS: ZOSYN 3.375 GM 3.375 GM in SODIUM CHLORIDE 100 ML IV SCH ×4 (00:10→17:02)
[2017-03-13] MEDS: DRONEDARONE HCL PO SCH ×3 (00:34→20:48)
[2017-03-13] MEDS: XOPENEX 1.25 MG NEB SCH ×4 (05:06→22:55)
[2017-03-13 05:23] LABS: HEMATOCRIT 35.5 % (37.0-47.0); HEMOGLOBIN 10.7 g/dl (12.0-16.0); IMMATURE GRANULOCYTE % (AUTO) 0.5 % (0.0-5.0); LYMPHOCYTES # (AUTO) 0.6 K/uL (0.60-3.4); LYMPHOCYTES % (AUTO) 10.2 (10.0-50.0); MEAN CORPUSCULAR HEMOGLOBIN 30.5 pg (27.0-31.0); MEAN CORPUSCULAR HGB CONC 30.1 (31.8-35.4); MEAN CORPUSCULAR VOLUME 101.1 fl (81.0-99.0); MONOCYTES # (AUTO) 0.4 K/uL (0.4-2.0); MONOCYTES % (AUTO) 5.6 (0-10); NEUTROPHILS # (AUTO) 5.2 K/ul (2.0-6.9); NEUTROPHILS % (AUTO) 83.7; PLATELET COUNT 164 10^3/uL (140-440); RED BLOOD COUNT 3.51 10^6/ul (4.20-5.40); WHITE BLOOD COUNT 6.26 K/ul (4.6-10.2)
[2017-03-13 05:36] LABS: ALBUMIN 2.7 g/dL (3.4-5.0); ALBUMIN/GLOBULIN RATIO 1.17; ANION GAP 7.4; BILIRUBIN,TOTAL 0.43 mg/dL (0.00-1.20); BUN/CREATININE RATIO 23.52; CALCIUM 8.3 mg/dL (8.2-10.2); CREATININE 0.51 mg/dL (0.60-1.30); POTASSIUM 4.4 mmol/L (3.5-5.10)
[2017-03-13] MEDS: SYNTHROID PO SCH (06:44)
[2017-03-13] MEDS: LOVENOX SUBCUT SCH (08:40)
[2017-03-13] MEDS: ADVAIR 500-50 DISKUS IH SCH ×2 (08:40→20:44)
[2017-03-13] MEDS: LANOXIN PO SCH (08:40)
[2017-03-13] MEDS: COLACE PO SCH ×2 (08:41→20:44)
[2017-03-13] MEDS: SOLU-MEDROL 40 MG IVP SCH (08:49)
[2017-03-13] MEDS: VANCOMYCIN 1 GM in SODIUM CHLORIDE 250 ML IV SCH (09:37)
[2017-03-13] MEDS: XARELTO PO SCH (17:02)
[2017-03-13] MEDS ORDERED: LASIX IVP STA (17:19)
[2017-03-13] MEDS ORDERED: PREDNISONE ONE (17:27)
[2017-03-13] MEDS ORDERED: PREDNISONE PO SCH (17:30)
[2017-03-13] MEDS: AUGMENTIN 875-125 MG TAB PO SCH (20:44)
[2017-03-13] MEDS ORDERED: VANCOMYCIN 750 MG in SODIUM CHLORIDE 250 ML IV SCH (21:00)
[2017-03-14] MEDS: XOPENEX 1.25 MG NEB SCH ×4 (05:04→23:14)
[2017-03-14 05:29] LABS: BASOPHILS % (AUTO) 0.1 % (0.0-3.0); HEMATOCRIT 35.1 % (37.0-47.0); HEMOGLOBIN 10.7 g/dl (12.0-16.0); IMMATURE GRANULOCYTE % (AUTO) 0.5 % (0.0-5.0); LYMPHOCYTES # (AUTO) 1.2 K/uL (0.60-3.4); LYMPHOCYTES % (AUTO) 13.7 (10.0-50.0); MEAN CORPUSCULAR HEMOGLOBIN 30.6 pg (27.0-31.0); MEAN CORPUSCULAR HGB CONC 30.5 (31.8-35.4); MEAN CORPUSCULAR VOLUME 100.3 fl (81.0-99.0); MONOCYTES # (AUTO) 0.8 K/uL (0.4-2.0); MONOCYTES % (AUTO) 9.7 (0-10); NEUTROPHILS # (AUTO) 6.5 K/ul (2.0-6.9); PLATELET COUNT 154 10^3/uL (140-440); WHITE BLOOD COUNT 8.56 K/ul (4.6-10.2)
[2017-03-14 06:18] LABS: ALBUMIN 2.6 g/dL (3.4-5.0); ALBUMIN/GLOBULIN RATIO 1.3; ANION GAP 7.8; BILIRUBIN,TOTAL 0.44 mg/dL (0.00-1.20); BUN/CREATININE RATIO 21.73; CALCIUM 8.3 mg/dL (8.2-10.2); CREATININE 0.46 mg/dL (0.60-1.30); POTASSIUM 3.8 mmol/L (3.5-5.10); TOTAL PROTEIN 4.6 g/dL (5.8-8.1)
[2017-03-14] MEDS: SYNTHROID PO SCH (06:20)
[2017-03-14] MEDS ORDERED: LASIX IVP STA (07:57)
[2017-03-14] MEDS: AUGMENTIN 875-125 MG TAB PO SCH ×2 (08:22→20:30)
[2017-03-14] MEDS: PREDNISONE PO SCH ×4 (08:22→19:22)
[2017-03-14] MEDS: COLACE PO SCH ×3 (08:22→20:32)
[2017-03-14] MEDS: LOVENOX SUBCUT SCH (08:23)
[2017-03-14] MEDS: LANOXIN PO SCH (08:23)
[2017-03-14] MEDS: ADVAIR 500-50 DISKUS IH SCH ×2 (08:23→20:30)
[2017-03-14] MEDS: DRONEDARONE HCL PO SCH ×2 (09:56→20:31)
[2017-03-14] MEDS ORDERED: CARDIZEM INJ ONE ×2 (15:28→20:49)
[2017-03-14] MEDS: CARDIZEM INJ 125 MG in SODIUM CHLORIDE 100 ML IV SCH ×2 (15:55→21:05)
[2017-03-14] MEDS ORDERED: SODIUM CHLORIDE 250 ML IV SCH (16:00)
[2017-03-14 17:12] LABS: ABG PH 7.402 (7.35-7.45)
[2017-03-14 17:13] LABS: ABG BASE EXCESS 21 (-2.0-2.0); ABG HCO3 46.2 (22.0-26.0); ABG PCO2 74.2 mmHg (35-45); ABG TCO2 48 (22.0-28.0)
[2017-03-14] MEDS: XARELTO PO SCH (17:19)
[2017-03-15] MEDS: XOPENEX 1.25 MG NEB SCH ×4 (05:02→22:32)
[2017-03-15 05:22] LABS: BASOPHILS % (AUTO) 0.1 % (0.0-3.0); EOSINOPHILS % (AUTO) 0.3 % (0.0-7.0); HEMATOCRIT 37.3 % (37.0-47.0); HEMOGLOBIN 11.4 g/dl (12.0-16.0); IMMATURE GRANULOCYTE % (AUTO) 0.4 % (0.0-5.0); LYMPHOCYTES # (AUTO) 1.2 K/uL (0.60-3.4); LYMPHOCYTES % (AUTO) 10.2 (10.0-50.0); MEAN CORPUSCULAR HEMOGLOBIN 30.6 pg (27.0-31.0); MEAN CORPUSCULAR HGB CONC 30.6 (31.8-35.4); MONOCYTES # (AUTO) 0.9 K/uL (0.4-2.0); NEUTROPHILS # (AUTO) 9.5 K/ul (2.0-6.9); PLATELET COUNT 171 10^3/uL (140-440); RED BLOOD COUNT 3.73 10^6/ul (4.20-5.40); WHITE BLOOD COUNT 11.68 K/ul (4.6-10.2)
[2017-03-15] MEDS: SYNTHROID PO SCH ×2 (05:40→05:42)
[2017-03-15 05:49] LABS: ALBUMIN 2.7 g/dL (3.4-5.0); ALBUMIN/GLOBULIN RATIO 1.17; BILIRUBIN,TOTAL 0.63 mg/dL (0.00-1.20); CALCIUM 8.4 mg/dL (8.2-10.2); CREATININE 0.5 mg/dL (0.60-1.30)
[2017-03-15] MEDS: LANOXIN PO SCH (08:08)
[2017-03-15] MEDS: COLACE PO SCH ×2 (08:08→20:35)
[2017-03-15] MEDS: AUGMENTIN 875-125 MG TAB PO SCH ×2 (08:08→20:32)
[2017-03-15] MEDS: PREDNISONE PO SCH ×4 (08:08→17:53)
[2017-03-15] MEDS: LOVENOX SUBCUT SCH (08:09)
[2017-03-15] MEDS: ADVAIR 500-50 DISKUS IH SCH ×2 (08:09→20:33)
[2017-03-15] MEDS: DRONEDARONE HCL PO SCH ×3 (09:39→21:14)
[2017-03-15] MEDS ORDERED: LASIX IVP STA (12:42)
[2017-03-15] MEDS ORDERED: CARDIZEM INJ ONE (15:12)
[2017-03-15] MEDS: CARDIZEM INJ 125 MG in SODIUM CHLORIDE 100 ML IV SCH (15:22)
[2017-03-15] MEDS: XARELTO PO SCH (17:51)
[2017-03-15] MEDS: NYSTATIN ORAL SUSP PO SCH ×2 (17:53→20:34)
[2017-03-15] MEDS ORDERED: LASIX IVP ONE (18:00)
[2017-03-16] MEDS: CARDIZEM INJ 125 MG in SODIUM CHLORIDE 100 ML IV SCH ×2 (00:44→06:19)
[2017-03-16] MEDS: XOPENEX 1.25 MG NEB SCH ×4 (05:05→23:10)
[2017-03-16 05:26] LABS: EOSINOPHILS % (AUTO) 0.3 % (0.0-7.0); HEMATOCRIT 34.7 % (37.0-47.0); HEMOGLOBIN 10.8 g/dl (12.0-16.0); IMMATURE GRANULOCYTE % (AUTO) 0.6 % (0.0-5.0); LYMPHOCYTES # (AUTO) 1.2 K/uL (0.60-3.4); LYMPHOCYTES % (AUTO) 11.2 (10.0-50.0); MEAN CORPUSCULAR HEMOGLOBIN 30.5 pg (27.0-31.0); MEAN CORPUSCULAR HGB CONC 31.1 (31.8-35.4); MONOCYTES # (AUTO) 0.8 K/uL (0.4-2.0); MONOCYTES % (AUTO) 7.7 (0-10); NEUTROPHILS # (AUTO) 8.4 K/ul (2.0-6.9); NEUTROPHILS % (AUTO) 80.2; PLATELET COUNT 172 10^3/uL (140-440); RED BLOOD COUNT 3.54 10^6/ul (4.20-5.40); WHITE BLOOD COUNT 10.45 K/ul (4.6-10.2)
[2017-03-16 05:43] LABS: ALBUMIN 2.7 g/dL (3.4-5.0); ALBUMIN/GLOBULIN RATIO 1.29; ANION GAP 9.8; BILIRUBIN,TOTAL 0.67 mg/dL (0.00-1.20); BUN/CREATININE RATIO 17.02; CALCIUM 8.5 mg/dL (8.2-10.2); CREATININE 0.47 mg/dL (0.60-1.30); POTASSIUM 3.8 mmol/L (3.5-5.10); TOTAL PROTEIN 4.8 g/dL (5.8-8.1)
[2017-03-16] MEDS: NYSTATIN ORAL SUSP PO SCH ×4 (06:08→20:32)
[2017-03-16] MEDS: SYNTHROID PO SCH (06:08)
[2017-03-16] MEDS: AUGMENTIN 875-125 MG TAB PO SCH ×2 (08:45→20:33)
[2017-03-16] MEDS: LANOXIN PO SCH (08:45)
[2017-03-16] MEDS: COLACE PO SCH ×2 (08:45→20:33)
[2017-03-16] MEDS: DRONEDARONE HCL PO SCH ×2 (08:46→20:32)
[2017-03-16] MEDS: ADVAIR 500-50 DISKUS IH SCH ×2 (08:46→20:32)
[2017-03-16] MEDS: PREDNISONE PO SCH ×4 (08:46→17:15)
[2017-03-16] MEDS: LOVENOX SUBCUT SCH (08:51)
[2017-03-16] MEDS: NYSTOP POWDER TP SCH ×2 (08:54→20:34)
[2017-03-16] MEDS: XARELTO PO SCH (17:15)
[2017-03-16] MEDS ORDERED: SOLU-MEDROL 125 MG IVP STA (18:02)
[2017-03-17 04:23] LABS: HEMATOCRIT 35.2 % (37.0-47.0); HEMOGLOBIN 10.6 g/dl (12.0-16.0); IMMATURE GRANULOCYTE % (AUTO) 1.7 % (0.0-5.0); LYMPHOCYTES # (AUTO) 0.3 K/uL (0.60-3.4); MEAN CORPUSCULAR HEMOGLOBIN 30.3 pg (27.0-31.0); MEAN CORPUSCULAR HGB CONC 30.1 (31.8-35.4); MEAN CORPUSCULAR VOLUME 100.6 fl (81.0-99.0); MONOCYTES # (AUTO) 0.2 K/uL (0.4-2.0); MONOCYTES % (AUTO) 2.3 (0-10); NEUTROPHILS # (AUTO) 9.6 K/ul (2.0-6.9); PLATELET COUNT 176 10^3/uL (140-440); WHITE BLOOD COUNT 10.29 K/ul (4.6-10.2)
[2017-03-17 04:45] LABS: ALBUMIN 2.5 g/dL (3.4-5.0); ALBUMIN/GLOBULIN RATIO 1.19; ANION GAP 8.4; BILIRUBIN,TOTAL 0.57 mg/dL (0.00-1.20); BUN/CREATININE RATIO 23.91; CALCIUM 8.3 mg/dL (8.2-10.2); CREATININE 0.46 mg/dL (0.60-1.30); POTASSIUM 4.4 mmol/L (3.5-5.10); TOTAL PROTEIN 4.6 g/dL (5.8-8.1)
[2017-03-17] MEDS: XOPENEX 1.25 MG NEB SCH ×3 (05:01→17:02)
[2017-03-17] MEDS: NYSTATIN ORAL SUSP PO SCH ×3 (06:05→16:36)
[2017-03-17] MEDS: SYNTHROID PO SCH (06:06)
--- NOTE | 2017-03-17 07:25 | PN ---
DATE OF SERVICE: 03/12/17 CHIEF COMPLAINT: "She was lethargic." SUBJECTIVE: She was sent from [facility] encephalopathic, lethargic and confused with very high c02 and in acute on chronic respiratory failure (hypercarbic). She also has acute on chronic hypoxic respiratory failure. She is being treated with IV steroids, broad spectrum antibiotics, nebulized bronchodilators. She is on and off BIPAP as her respiratory status will wax and wane. She, two days ago, had a brief episode of SVT controlled with IV Cardizem (which has since been weaned). She has through all of this felt better and is actually eating some. She has been not out of bed yet. There is no diarrhea or constipation. OBJECTIVE: V/S: Temperature 98.3, pulse 68, respiratory rate 22, BP 127/64 and these parameters are fairly reflective of the last 24 to 48 hours. GENERAL: No obvious distress. CHEST: Kyphotic, diminished, no active wheeze. CARDIOVASCULAR: Distant S1, S2 with no peripheral edema. GI: Nontender. LABS/X-RAYS: White count 5, hemoglobin 10.4, chemistries show BUN 13, creatinine 0.52, sugar 141. ASSESSMENT: # Encephalopathy (with hypercarbia and hypoxemia) - resolved # Acute on chronic respiratory failure - hypoxic # Acute on chronic respiratory failure - hypercarbic # Congestive heart failure - diastolic - acute on chronic # Chronic kidney disease - Stage 3 # Cardiac arrhythmias - atrial fib with recent SVT # Gait decline - acute on chronic # Thoracic aneurysm - 5.3 with some dissection, apparently not progressing # EKGs with negative enzymes of questionable clinical significance # Nutritional decline PLAN: 1. Repeat chest x-ray to try and establish if we are showing any worsening or improvement. 2. Case Management is working on whether she will remain in acute care/swing or whether will improve enough to even consider going back to the half-way. 3. Medications and laboratories were all reviewed. She has daily labs and medications will be continued for now. KRISTINE
[2017-03-17] MEDS: DRONEDARONE HCL PO SCH (08:19)
[2017-03-17] MEDS: ADVAIR 500-50 DISKUS IH SCH (08:19)
[2017-03-17] MEDS: LOVENOX SUBCUT SCH (08:19)
[2017-03-17] MEDS: PREDNISONE PO SCH ×4 (08:20→16:37)
[2017-03-17] MEDS: LANOXIN PO SCH (08:20)
[2017-03-17] MEDS: COLACE PO SCH (08:20)
[2017-03-17] MEDS: AUGMENTIN 875-125 MG TAB PO SCH (08:21)
[2017-03-17] MEDS: NYSTOP POWDER TP SCH (08:21)
[2017-03-17] MEDS: CARDIZEM INJ 125 MG in SODIUM CHLORIDE 100 ML IV SCH (08:22)
--- NOTE | 2017-03-17 10:06 | PN ---
DATE OF SERVICE: 03/14/17 CHIEF COMPLAINT: "She was unresponsive." SUBJECTIVE: Cookie is brought from [facility] unresponsive or very lethargic. She was encephalopathic with hypercarbia and hypoxemia. She has chronic respiratory failure with mostly hypoxemic issues. She was found to have potential pneumonia and was treated with Vancomycin and Zosyn for 5 days, switched to Augmentin on 03/12. She had been weaned on the same day to p.o. steroids. On BIPAP she is without shortness of breath, chest pain and only has a mid back discomfort she thinks is from laying in bed, is better when she is in a chair. She slept well. She diuresed 1500 cc after the Lasix IV yesterday ( a first time thing). OBJECTIVE: V/S: Temperature 97.4, pulse 68, BP 127/57, respirations 22 and all this pattern is the same. CHEST: Diminished but anteriorly clear. CARDIOVASCULAR: S1, S2 soft; I/ murmur with 1+ bilateral mid calf edema, pitting even lying. Upper extremities have the same. GI: Nontender. LABS/X-RAYS: Chemistries with only bicarb of 42, creatinine 0.46, AST 12, ALT 37 and total protein and albumin low; all of these are stable. White count 8.56, hemoglobin 10.7, all of these stable. ASSESSMENT: # Encephalopathy (with hypercarbia and hypoxemia) - resolved # Acute on chronic respiratory failure - hypoxic # Acute on chronic respiratory failure - hypercarbic # Congestive heart failure - diastolic - acute on chronic # Chronic kidney disease - Stage 3 # Cardiac arrhythmias - atrial fib with recent SVT # Gait decline - acute on chronic # Thoracic aneurysm - 5.3 with some dissection, apparently not progressing # EKGs with negative enzymes of questionable clinical significance # Nutritional decline # Edema- this has been an issue for the last couple of days and there was an initiated tolerated response to Lasix. PLAN: 1. Message reviewed and we are going to do Lasix again and continue the same medications otherwise. 2. Labs have to be reviewed daily and ordered as needed. 3. Activity - will try to at least sit in the bed today. 4. CPAP-BIPAP will attempt to be partially weaned on and off and see what is tolerated. 5. Discharge planning is to try and return to [facility] in a couple of days although she may need parameters for more frequent CPAP/BIPAP than what she was using before. KRISTINE
--- NOTE | 2017-03-17 10:17 | PN ---
DATE OF SERVICE: 03/15/17 CHIEF COMPLAINT: "I am still short of breath." SUBJECTIVE: She has end-stage COPD with hypoxic and hypercarbic components. She has CHF, atrial arrhythmias treated with Multaq and was admitted from the retirement through the ER with encephalopathy caused by significant hypercarbia and hypoxemia. Encephalopathy resolved; she went through the initial high dose antibiotics, steroids and nebs treatment to a level of on and off requirements for CPAP; we have been trying to wean in order to get her back to the retirement. I discovered today that she has not been getting her Multaq. She has went back into a supraventricular tach and she is on a Cardizem drip (Dr. Cira muro). She denies chest pain. OBJECTIVE: GENERAL: Alert, oriented on CPAP. V/S: Temperature 98.3, BP 135/46, pulse 75, respiratory rate 24. CHEST: Markedly diminished bilateral expiratory/inspiratory wheeze, a few crackles at the bases. CARDIOVASCULAR: Tachy with a soft I/ murmur; continued edema of the arms and legs and 1 to 2+ pitting. LABS/X-RAYS: White count 11 up from 8, hemoglobin 11.4, bicarb remains high; note GFR at 122 and no significant other patterns. ASSESSMENT: # Encephalopathy - hypercarbic/hypoxic - resolved # Acute on chronic respiratory failure - hypoxemic # Acute on chronic respiratory failure - hypercarbic # Congestive heart failure - diastolic - acute on chronic # Chronic kidney disease - Stage 3 # Cardiac arrhythmias - atrial fib with on and off SVT # Gait decline - acute on chronic # Thoracic aneurysm - 5.3 with some dissection # EKGs with negative enzymes of questionable clinical significance # Edema - diffuse She is not weaning well and or even having a response from the edema with her diuresis. PLAN: 1. Increase Lasix to b.i.d. 2. Continue to watch electrolytes and labs. 3. Continue with the oral approach other than the Lasix. 4. Continue Cardizem and we have to get her Multaq back again. 5. Continue with discharge planning back to the retirement; but I am not sure if this is going to be feasible or whether we might have to look out for options such as a LTACH unit. KRISTINE
--- NOTE | 2017-03-17 10:34 | PN ---
DATE OF SERVICE: 03/16/17 CHIEF COMPLAINT: "Shortness of breath." SUBJECTIVE: She was sent from [facility] with acute confusion, was encephalopathic with hypercarbia and hypoxemia. She has chronic respiratory failure of both types but [facility] since a more recent [facility] admission. We have tried to wean her from broad spectrum antibiotics, nebulized bronchodilators and IV steroids to oral and have had interval issues of rapid atrial fibrillation and a poor response to being able to completely get off BIPAP. She became edematous. Fluids were decreased and we have been diuresing. She is still eating some; Case Management was asked to day about the LTACH Unit as an option versus a jail to being able to handle her BIPAP/CPAP. OBJECTIVE: V/S: Temperature 98, pulse 88, BP 122/53, respirations 24. GENERAL: No obvious distress on BIPAP. CHEST: Inspiratory/expiratory wheeze, diminished breath sounds, a few scattered crackles. CARDIOVASCULAR: I/ systolic murmur, less edema particularly the upper extremities and only trace to 1+ in the equal lower extremities. This is pitting. GI: Nontender. PSYCHIATRIC: Alert, oriented times three. LABS/X-RAYS: Chemistries show stability; note potassium 3.8 and white count down to 10.4, hemoglobin down to 10.8. ASSESSMENT: # Encephalopathy - hypercarbic/hypoxic - resolved # Acute on chronic respiratory failure - hypoxemic # Acute on chronic respiratory failure - hypercarbic # Congestive heart failure - diastolic - acute on chronic # Chronic kidney disease - Stage 3 # Cardiac arrhythmias - atrial fib with on and off SVT # Gait decline - acute on chronic # Thoracic aneurysm - 5.3 with some dissection # EKGs with negative enzymes of questionable clinical significance # Edema - diffuse PLAN: 1. Will try IV steroids tonight and try to note the response. 2. Continue b.i.d. Lasix and diuresing. 3. Continue to follow labs. 4. We are going to have a difficult decision to make on placement; I still think the LTACH Unit at [facility] may be an option. [facility] HOSPITALAngel
--- NOTE | 2017-03-17 10:46 | PN ---
DATE OF SERVICE: 03/13/17 CHIEF COMPLAINT: "She was unresponsive." SUBJECTIVE: The patient presented from [facility] unresponsive or significantly confused. She was found to have respiratory failure with hypercarbia, hypoxemia and encephalopathy secondary to. She has improved significantly with steroids, Duonebs, IV Zosyn and Vancomycin; she has not ran a temperature while here. She is gradually eating better and she has resigned herself to using her CPAP more often. OBJECTIVE: V/S: Temperature 98.7, pulse 73, respirations 20, BP 103/58 and this pattern is steady. CHEST: Diminished kyphotic. CARDIOVASCULAR: Irregularly irregular, S1, S2, distant without murmur. No peripheral edema. GI: Protuberant due to posture, nontender without organomegaly. PSYCHIATRIC: Alert, oriented times three and pleasant. LABS/X-RAYS: Laboratories show white count 6 and stable pattern; hemoglobin 10.7 down from initial 13 and chemistries note GFR 119 and other than low proteins nothing else dramatic. Yesterday's chest x-ray showed worsening opacification, left hemothorax, worsening consolidation versus effusion and a small right pleural effusion. ASSESSMENT: # Encephalopathy (hypercarbic/hypoxic) - improved. # Acute on chronic respiratory failure - hypoxic. # Acute on chronic respiratory failure - hypercarbic. # Congestive heart failure - diastolic - acute on chronic. # Chronic kidney disease - Stage 3 # Cardiac arrhythmias - atrial fib with recent SVT. # Gait decline - acute on chronic. # Thoracic aneurysm - 5.3 with some dissection - inoperable. # EKG changes with negative enzymes of questionable clinical significance PLAN: 1. Will try to wean to p.o. Augmentin and steroids and see if she can at all handle this. 2. She will need to be here through the weekend due to on and off CPAP. It is going to be where it will have to be used more often. I see a potential to try and educate the [facility] to use it - when to use it and how. KRISTINE
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
[2017-03-17] MEDS: XARELTO PO SCH (16:36)
[2017-03-17 17:30] VITALS: BP 104/56; TEMP 97.4
== END 2017-03-17 18:34 | DRG 70 ==
LOC: ED 23:16 → SCU 03-09 01:38
PROVIDERS: ADMIT Family Medicine; ATTEND Family Medicine
DX: G93.49 Other encephalopathy (principal); J96.22 Acute and chronic respiratory failure with hypercapnia; J96.21 Acute and chronic respiratory failure with hypoxia; J96.02 Acute respiratory failure with hypercapnia; I50.33 Acute on chronic diastolic (congestive) heart failure; I71.01 Dissection of thoracic aorta; I47.1 Supraventricular tachycardia; E46 Unspecified protein-calorie malnutrition; I48.91 Unspecified atrial fibrillation; J18.9 Pneumonia, unspecified organism; R06.02 Shortness of breath; J44.9 Chronic obstructive pulmonary disease, unspecified; I12.9 Hypertensive chronic kidney disease with stage 1 through stage 4 chronic kidney disease, or unspecified chronic kidney disease; N18.3 Chronic kidney disease, stage 3 (moderate); R26.2 Difficulty in walking, not elsewhere classified; D64.9 Anemia, unspecified; I95.9 Hypotension, unspecified; R60.9 Edema, unspecified; Z87.891 Personal history of nicotine dependence; Z99.89 Dependence on other enabling machines and devices; Z79.899 Other long term (current) drug therapy
CPT/HCPCS: 36415; 80053; 80202; 82550; 82803; 82962; 83605; 83880; 84145; 84484; 85025; 87040; 87081; 93005; 93010; 94640; 94660; 96360; 96361; 96365; 96375; 99285

== ENCOUNTER 2017-03-17 18:35 | Outpatient (CLI) | END 2017-03-17 18:36 | disposition home or self-care (01) | LOC: AMBL 18:35 | PROVIDERS: ATTEND Emergency Medicine | DX: J44.9 Chronic obstructive pulmonary disease, unspecified (principal); Z99.81 Dependence on supplemental oxygen; Z96.0 Presence of urogenital implants ==

== ENCOUNTER 2017-04-25 07:22 | Inpatient (IN) ==
[2017-04-25 08:05] LABS: HEMATOCRIT 40.1 % (37.0-47.0); HEMOGLOBIN 11.6 g/dl (12.0-16.0); MEAN CORPUSCULAR HEMOGLOBIN 30.1 pg (27.0-31.0); MEAN CORPUSCULAR HGB CONC 28.9 (31.8-35.4); MEAN CORPUSCULAR VOLUME 103.9 fl (81.0-99.0); PLATELET COUNT 353 10^3/uL (140-440); RED BLOOD COUNT 3.86 10^6/ul (4.20-5.40); WHITE BLOOD COUNT 16.69 K/ul (4.6-10.2)
[2017-04-25 08:13] LABS: ANISOCYTOSIS NOT PRESENT (NOT PRESENT); HYPOCHROMASIA 1+ (NOT PRESENT); SPHEROCYTES 1+ (NOT PRESENT)
[2017-04-25 08:24] LABS: ALBUMIN 2.7 g/dL (3.4-5.0); ALBUMIN/GLOBULIN RATIO 0.79; ANION GAP 12.5; BILIRUBIN,TOTAL 0.26 mg/dL (0.00-1.20); BUN/CREATININE RATIO 22.58; CREATININE 0.62 mg/dL (0.60-1.30); POTASSIUM 4.5 mmol/L (3.5-5.10); TOTAL PROTEIN 6.1 g/dL (5.8-8.1); TROPONIN I 0.074 ng/ml (0.0000-0.4000)
[2017-04-25 08:31] LABS: BILIRUBIN,URINE Negative (NEGATIVE); KETONES,URINE Negative (NEGATIVE); LEUKOCYTE ESTERASE ,URINE 3+ (NEGATIVE); NITRITE,URINE Negative (NEGATIVE); PROTEIN,URINE 2+ (NEGATIVE); URINE, BLOOD 2+ (NEGATIVE)
--- NOTE | 2017-04-25 08:35 | DI ---
EXAM: Chest one view HISTORY: Cough COMPARISON: 03/12/2017 TECHNIQUE: Single view of the chest was performed FINDINGS: Near complete opacification and left lung appears increased. Small to moderate right ple ural effusion with adjacent atelectasis and/or consolidation. Possible pulmonary vascular congestio n. Emphysematous change. Heart is enlarged and unchanged and partially obscured secondary to opacifi cation. Mediastinal contour unchanged. No visible pneumothorax. IMPRESSION: 1. Near-complete opacification left lung, worsened from 03/09/2017, may represent combination of pn eumonia and effusion. Malignancy not excluded. Follow-up recommended. 2. Small to moderate right pleural effusion with adjacent atelectasis and/or pneumonia. 3. Possible pulmonary vascular congestion. 4. Emphysema. Report faxed at time of dictation.
[2017-04-25 08:38] LABS: ADD URINE MICROSCOPIC YES; BACTERIA,URINE 3+ (NOT PRESENT)
[2017-04-25 08:44] LABS: ABG PCO2 > 130.0 mmHg (35-45); ABG PH 7.065 (7.35-7.45)
--- NOTE | 2017-04-25 09:06 | ED.PDOC ---
General ED Provider: Dr. SONIA CHEEK Chief Complaint: Altered Mental Status Stated Complaint: altered mental status Time Seen by Physician: 07:30 (pt arrived lethargic but arousable vital sign stable ) Mode of Arrival: Ambulance Information Source: Patient Exam Limitations: No limitations Primary Care Provider: ANA VILLATORO Nursing and Triage Documentation Reviewed and Agree: Yes Neurological Complaint Exam - Altered Mental Status Complaint/Exam Current Mental Status: Unresponsiveness (at [facility] ) Last Known Well: 1 day ago Onset: Sudden Duration: 1 HR Symptoms Are: Resolved Timing: Intermittent Episodes Lasting: Minutes Initial Severity: Moderate Current Severity: Mild Eye Deviation Present: No Character: Reports: Lethargy Aggravating: Reports: Unknown (CP2 RETENTION) Associated Signs and Symptoms: Reports: Weakness. Denies: Dizziness, Headache, Fever, Illness, Nuchal rigidity, Seizure, Nausea, Vomiting, Recently depressed, Trauma Related History: Denies: Seizure Cardiac Risk Factors: Reports: None CVA Risk Factors: Reports: None Related Surgical History: Reports: None Carotid Bruit Present: No Glascow Coma Scale (see protocol): 13 Nystagmus Present: No Gag Reflex Present: Yes Meningeal Signs Positive: No Focal Weakness: Present: RUE Focal Sensory Loss: Present: RUE Gait: Unable Babinski Sign: Negative Right, Negative Left Heel to Toe Normal: No (UNABLE ) Signs of Injury: Present: Normal findings Differential Diagnoses: Hypoxia, Intracranial Bleed, Sepsis, CVA Review of Systems - Review Of Systems Constitutional: Reports: Malaise, Weakness Eyes: Reports: No symptoms Ears, Nose, Mouth, Throat: Reports: No symptoms Respiratory: Reports: Cough, Short of air Cardiac: Reports: No symptoms GI: Reports: No symptoms : Reports: No symptoms Musculoskeletal: Reports: No symptoms Skin: Reports: No symptoms Neurological: Reports: No symptoms Endocrine: Reports: No symptoms Hematologic/Lymphatic: Reports: No symptoms All Other Systems: Reviewed and Negative Past Medical History - Past Medical History Previously Healthy: Yes Endocrine: Reports: Unknown Cardiovascular: Reports: Unknown Respiratory: Reports: COPD Hematological: Reports: Unknown Gastrointestinal: Reports: Unknown Genitourinary: Reports: Unknown Neuro/Psych: Reports: Unknown Musculoskeletal: Reports: Unknown Cancer: Reports: Unknown Last Menstrual Period: n/a - Surgical History General Surgical History: Reports: Unknown - Family History Family History: Reports: Unknown - Social History Smoking Status: Current some day smoker, Light tobacco smoker Hx Substance Use: No Alcohol Screening: None - Immunizations Tetanus Shot up to Date: Yes Physical Exam - Physical Exam Appearance: Well-appearing, No pain distress, Well-nourished Eyes: FAVIOLA, EOMI, Conjunctiva clear ENT: Ears normal, Nose normal, Oropharynx normal Respiratory: Airway patent, Breath sounds diminished, Rhonchi (LEFT LUNG) Cardiovascular: RRR, Pulses normal, No rub, No murmur GI/: Soft, Nontender, No masses, Bowel sounds normal, No Organomegaly Musculoskeletal: Normal strength, ROM intact, No edema, No calf tenderness Skin: Warm, Dry, Normal color Neurological: Sensation intact, Motor intact, Reflexes intact, Cranial nerves intact, Alert, Oriented Psychiatric: Affect appropriate, Mood appropriate Interpretation - Radiology Interpretation Radiology Interpretation By: Radiologist Radiology Results: No acute changes (LEFT LUNG OPACIFICATION) Critical Care Note - Critical Care Note Total Time (mins): 0 Course - Course Hematology/Chemistry: 04/25/17 07:50 04/25/17 07:50 Orders, Labs, Meds: Lab Review 04/25/17 04/25/17 07:50 08:25 WBC 16.69 H RBC 3.86 L Hgb 11.6 L Hct 40.1 MCV 103.9 H MCH 30.1 MCHC 28.9 L RDW Coeff of Tessa 14.6 Plt Count 353 Neutrophils % (Manual) Not Reportable Hypochromasia 1+ Anisocytosis Not present Macrocytosis 2+ Spherocytes 1+ Puncture Site Rr O2 Saturation Pending ABG pH 7.065 L* ABG pCO2 > 130.0 H ABG pO2 111.0 H ABG HCO3 Pending ABG Total CO2 Pending ABG Base Excess Pending Wilian Test + O2 Delivery Device Nrb Oxygen Liter Flow 15.00 FiO2 % 100.0 Sodium 144 Potassium 4.5 Chloride 97 L Carbon Dioxide 39 H Anion Gap 12.5 BUN 14 Creatinine 0.62 Estimated GFR (MDRD) 95.00 BUN/Creatinine Ratio 22.58 Glucose 158 H Lactic Acid 10.1 Calcium 9.0 Total Bilirubin 0.26 AST 29 ALT 13 Alkaline Phosphatase 56 Total Creatine Kinase 21 Troponin I 0.0740 Total Protein 6.1 Albumin 2.7 L Globulin 3.4 Albumin/Globulin Ratio 0.79 Procalcitonin 0.10 Urine Color Yellow Urine Clarity Cloudy Urine pH 5.0 Ur Specific [place] >=1.030 Urine Protein 2+ Urine Glucose (UA) Negative Urine Ketones Negative Urine Blood 2+ Urine Nitrite Negative Urine Bilirubin Negative Urine Urobilinogen 1.0 Ur Leukocyte Esterase 3+ Urine Microscopic RBC 10-20 Urine Microscopic WBC 30-50 Ur Squamous Epith Cells 5-10 Urine Bacteria 3+ Orders Category Date Time Status ABG DRAW REQUEST Stat CARDIO 04/25/17 07:32 Completed EKG-(ED ONLY) Stat CARDIO 04/25/17 07:32 Completed ED IV/MEDIPORT/POWERPORT .ONCE EMERGENCY 04/25/17 07:32 Active ABG Stat LAB 04/25/17 07:50 Results BLOOD CULTURE Stat LAB 04/25/17 07:50 Received CBC W/ AUTO DIFF Stat LAB 04/25/17 07:50 Completed COMPREHENSIVE METABOLIC PANEL Stat LAB 04/25/17 07:50 Completed CREATINE KINASE Stat LAB 04/25/17 07:50 Completed LACTIC ACID Stat LAB 04/25/17 07:50 Completed MANUAL DIFFERENTIAL Stat LAB 04/25/17 07:50 Completed PROCALCITONIN Stat LAB 04/25/17 07:50 Completed TROPONIN I Stat LAB 04/25/17 07:50 Completed URINALYSIS C & S IF INDICATED Stat LAB 04/25/17 08:25 Completed URINE CULTURE Stat LAB 04/25/17 08:25 Received 0.9 % Sodium Chloride [Saline Flush] MEDS 04/25/17 07:32 Active 1 syr IVF PRN PRN CHEST, 1V AP ONLY Stat RADS 04/25/17 07:[address] HEAD W/O CONTRAST Stat RADS 04/25/17 07:33 Ordered Medications Generic Name Dose Route Start Last Admin Trade Name Freq PRN Reason Stop Dose Admin Sodium Chloride 1 syr 04/25/17 07:32 Saline Flush IVF PRN PRN To flush IV Vital Signs: Temp Pulse Resp BP Pulse Ox 04/25/17 08:35 90 L 04/25/17 07:30 98.4 F 74 28 H 169/41 H 92 L Departure - Departure Time of Disposition: 09:11 Disposition: ADMITTED INPATIENT Discharge Problem: Altered mental status Pneumonia Qualifiers: Pneumonia type: due to unspecified organism Laterality: left Lung location: lower lobe of lung Qualifier Code: (J18.1) Lobar pneumonia, unspecified organism Urinary tract infection Qualifiers: Urinary tract infection type: site unspecified Hematuria presence: without hematuria Qualifier Code: (N39.0) Urinary tract infection, site not specified Instructions: Urinary Tract Infection in Women (ED) Condition: Fair Pt referred to PMD for follow-up: No Additional Instructions: Please call your Family Physician as soon as possible to schedule a follow-up appointment. Allergies/Adverse Reactions: Allergies fluvastatin [From Lescol] Adverse Reaction (Verified 03/09/17 08:06) levofloxacin [From Levaquin] Adverse Reaction (Verified 03/09/17 08:06) metronidazole [From Flagyl] Adverse Reaction (Verified 03/09/17 08:06) Sulfa (Sulfonamide Antibiotics) Adverse Reaction (Verified 11/29/16 11:42) Home Medications: Ambulatory Orders Acetaminophen [Tylenol] 2 tab PO Q4H PRN 03/09/17 Albuterol Sulfate 0.083% Neb [Albuterol 0.083% Neb] 3 ml INH Q6H PRN 03/09/17 Bisacodyl 10 mg RC Q24H 03/09/17 Budesonide [Pulmicort 0.5 mg/2 ml] 1 vial INH Q12H 03/09/17 Digoxin 250 mcg PO DAILY 03/09/17 Docusate Sodium [Colace] 1 cap PO BID 03/09/17 Dronedarone HCl [Multaq] 1 tab PO Q12H 03/09/17 Ipratropium [place] 0.02% Neb [Atrovent 0.02% Neb] 1 vial INH TID 03/09/17 Levalbuterol HCl [Xopenex] 1 applic INH Q8H PRN 03/09/17 Levothyroxine Sodium [Synthroid] 100 mcg PO QDAC 03/09/17 Linaclotide [Linzess] 290 mcg PO Q25H PRN 03/09/17 Lubiprostone [Amitiza] 1 tab PO BEDTIME 03/09/17 Magnesium Hydroxide [Milk of Magnesia] 30 ml PO Q24H PRN 03/09/17 Metoprolol Tartrate [Lopressor] 25 mg PO BID 03/09/17 Pediatric Multivit Comb #19/FA [Children's Multi-Vit Gummies] 2 tab PO DAILY 09/13 Polyethylene Glycol 3350 [Miralax] 17 gm PO Q12H PRN 03/09/17 Rivaroxaban [Xarelto] 20 mg PO 1700 03/09/17 Tiotropium [place] [Spiriva] 1 cap INH DAILY 03/09/17 Disposition Discussed With: Patient
[2017-04-25] MEDS ORDERED: VANCOMYCIN 1 GM in SODIUM CHLORIDE 250 ML IV STA (09:13)
[2017-04-25] MEDS ORDERED: ZOSYN 3.375 GM 3.375 GM in SODIUM CHLORIDE 100 ML IV STA (09:37)
--- NOTE | 2017-04-25 09:57 | CT ---
EXAM: CT of the head without contrast History: Unresponsive Comparison: Head CT 11/29/2016 Technique: Multiplanar CT images through the head were obtained without the administration of IV co ntrast Findings: The visualized paranasal sinuses and mastoid air cells are clear in general. No acute ca lvarial abnormalities. Stable area of cortical hyperostosis involving the right occipital bone. Intracranially the ventricular and cisternal spaces are normal in size, shape and configuration for a patient of this age. No dominant mass or midline shift. No hydrocephalous. No acute intracrania l hemorrhage or abnormal extraaxial fluid collections. Impression: No acute intracranial process.
[2017-04-25 10:02] LABS: ABG BASE EXCESS 0 (-2.0-2.0); ABG HCO3 0 (22.0-26.0); ABG TCO2 0 (22.0-28.0)
[2017-04-25 11:15] VITALS: BMI 25.7
[2017-04-25] MEDS: SODIUM CHLORIDE 1,000 ML IV SCH (11:36)
[2017-04-25] MEDS: ZOSYN 3.375 GM 3.375 GM in SODIUM CHLORIDE 100 ML IV SCH ×3 (11:39→23:40)
[2017-04-25 12:39] LABS: ABG PCO2 112.7 mmHg (35-45); ABG PH 7.192 (7.35-7.45)
[2017-04-25 12:40] LABS: ABG BASE EXCESS 15 (-2.0-2.0); ABG HCO3 43.3 (22.0-26.0); ABG TCO2 47 (22.0-28.0)
[2017-04-25 15:48] LABS: TROPONIN I 0.076 ng/ml (0.0000-0.4000)
[2017-04-25 23:18] LABS: TROPONIN I 0.097 ng/ml (0.0000-0.4000)
[2017-04-26 00:06] LABS: ABG BASE EXCESS 11 (-2.0-2.0); ABG HCO3 33.7 (22.0-26.0); ABG PCO2 38.1 mmHg (35-45); ABG PH 7.555 (7.35-7.45); ABG TCO2 35 (22.0-28.0)
[2017-04-26] MEDS: DUONEB NEB SCH ×3 (01:05→10:06)
[2017-04-26] MEDS ORDERED: DUONEB NEB ONE (01:05)
[2017-04-26] MEDS: SODIUM CHLORIDE 1,000 ML IV SCH ×2 (02:28→17:11)
[2017-04-26 04:55] LABS: ABG BASE EXCESS 11 (-2.0-2.0); ABG HCO3 33.3 (22.0-26.0); ABG PCO2 38.4 mmHg (35-45); ABG PH 7.547 (7.35-7.45); ABG TCO2 34 (22.0-28.0)
[2017-04-26] MEDS: ZOSYN 3.375 GM 3.375 GM in SODIUM CHLORIDE 100 ML IV SCH ×4 (05:00→23:53)
[2017-04-26 05:03] LABS: BASOPHILS # (AUTO) 0.1 K/uL (0-0.2); BASOPHILS % (AUTO) 1.1 % (0.0-3.0); HEMATOCRIT 31.9 % (37.0-47.0); HEMOGLOBIN 9.8 g/dl (12.0-16.0); IMMATURE GRANULOCYTE % (AUTO) 0.2 % (0.0-5.0); LYMPHOCYTES # (AUTO) 1.6 K/uL (0.60-3.4); LYMPHOCYTES % (AUTO) 19.4 (10.0-50.0); MEAN CORPUSCULAR HEMOGLOBIN 29.9 pg (27.0-31.0); MEAN CORPUSCULAR HGB CONC 30.7 (31.8-35.4); MEAN CORPUSCULAR VOLUME 97.3 fl (81.0-99.0); MONOCYTES # (AUTO) 0.7 K/uL (0.4-2.0); NEUTROPHILS % (AUTO) 71.3; PLATELET COUNT 246 10^3/uL (140-440); RED BLOOD COUNT 3.28 10^6/ul (4.20-5.40); WHITE BLOOD COUNT 8.46 K/ul (4.6-10.2)
[2017-04-26 05:25] LABS: ALBUMIN 2.4 g/dL (3.4-5.0); ALBUMIN/GLOBULIN RATIO 0.89; ANION GAP 15.8; BILIRUBIN,TOTAL 0.57 mg/dL (0.00-1.20); BUN/CREATININE RATIO 33.92; CALCIUM 8.4 mg/dL (8.2-10.2); CREATININE 0.56 mg/dL (0.60-1.30); POTASSIUM 3.8 mmol/L (3.5-5.10); TOTAL PROTEIN 5.1 g/dL (5.8-8.1)
[2017-04-26] MEDS ORDERED: SYNTHROID PO SCH (06:30)
[2017-04-26] MEDS ORDERED: DRONEDARONE HCL PO SCH (07:30)
[2017-04-26] MEDS: LANOXIN PO SCH (08:03)
[2017-04-26] MEDS ORDERED: DIGOXIN 250 MCG PO SCH (09:00)
[2017-04-26] MEDS: ATROVENT 0.02% NEB NEB SCH ×2 (13:16→19:10)
[2017-04-26] MEDS ORDERED: ATROVENT 0.02% NEB NEB ONE (13:16)
[2017-04-26] MEDS: DRONEDARONE HCL PO SCH (20:57)
[2017-04-27 04:16] LABS: ABG BASE EXCESS 13 (-2.0-2.0); ABG HCO3 37.6 (22.0-26.0); ABG PCO2 59.5 mmHg (35-45); ABG PH 7.409 (7.35-7.45); ABG TCO2 39 (22.0-28.0)
[2017-04-27] MEDS: ATROVENT 0.02% NEB NEB SCH ×5 (05:14→23:10)
[2017-04-27] MEDS: ZOSYN 3.375 GM 3.375 GM in SODIUM CHLORIDE 100 ML IV SCH ×3 (05:14→17:28)
[2017-04-27 05:16] LABS: BASOPHILS # (AUTO) 0.1 K/uL (0-0.2); BASOPHILS % (AUTO) 1.6 % (0.0-3.0); EOSINOPHILS # (AUTO) 0.1 K/ul (0.0-0.7); EOSINOPHILS % (AUTO) 1.1 % (0.0-7.0); HEMATOCRIT 32.5 % (37.0-47.0); HEMOGLOBIN 9.7 g/dl (12.0-16.0); IMMATURE GRANULOCYTE % (AUTO) 0.6 % (0.0-5.0); LYMPHOCYTES # (AUTO) 1.3 K/uL (0.60-3.4); LYMPHOCYTES % (AUTO) 18.3 (10.0-50.0); MEAN CORPUSCULAR HEMOGLOBIN 29.8 pg (27.0-31.0); MEAN CORPUSCULAR HGB CONC 29.8 (31.8-35.4); MONOCYTES # (AUTO) 0.8 K/uL (0.4-2.0); MONOCYTES % (AUTO) 11.8 (0-10); NEUTROPHILS # (AUTO) 4.7 K/ul (2.0-6.9); NEUTROPHILS % (AUTO) 66.6; PLATELET COUNT 246 10^3/uL (140-440); RED BLOOD COUNT 3.25 10^6/ul (4.20-5.40); WHITE BLOOD COUNT 7.09 K/ul (4.6-10.2)
[2017-04-27 05:41] LABS: ALBUMIN 2.4 g/dL (3.4-5.0); ALBUMIN/GLOBULIN RATIO 0.89; ANION GAP 14.4; BILIRUBIN,TOTAL 0.43 mg/dL (0.00-1.20); CALCIUM 8.3 mg/dL (8.2-10.2); CREATININE 0.56 mg/dL (0.60-1.30); POTASSIUM 3.4 mmol/L (3.5-5.10); TOTAL PROTEIN 5.1 g/dL (5.8-8.1)
[2017-04-27] MEDS: DRONEDARONE HCL PO SCH ×2 (08:16→20:24)
[2017-04-27] MEDS: LANOXIN PO SCH (08:16)
[2017-04-27 10:21] LABS: ABG BASE EXCESS 9 (-2.0-2.0); ABG HCO3 36 (22.0-26.0); ABG PH 7.27 (7.35-7.45); ABG TCO2 38 (22.0-28.0)
[2017-04-27] MEDS: SODIUM CHLORIDE 1,000 ML IV SCH (10:37)
--- NOTE | 2017-04-27 13:16 | DI ---
Exam: Single x-ray of the chest. Comparison: 04/25/2017. Reason for exam: Pneumonia. FINDINGS: Improved aeration is seen in the left hemithorax. There is persistent blunting of both c ostophrenic angles with layering densities consistent with pleural effusion. There is a residual ai r space opacity in the left upper lobe. There is obscuration of the left heart border and left hemid iaphragm. No obvious pneumothorax. Impression: 1. Consolidation in the left upper lobe consistent with pneumonia and improved aeration in the left hemithorax. 2. Persistent basilar airspace opacities consistent with atelectasis or pneumonia and bilateral ple ural effusions.
[2017-04-27] MEDS: XOPENEX 1.25 MG NEB SCH ×2 (18:04→23:00)
[2017-04-28] MEDS: ZOSYN 3.375 GM 3.375 GM in SODIUM CHLORIDE 100 ML IV SCH ×4 (00:11→17:08)
[2017-04-28] MEDS: SODIUM CHLORIDE 1,000 ML IV SCH ×3 (03:17→18:00)
[2017-04-28 04:41] LABS: BASOPHILS # (AUTO) 0.1 K/uL (0-0.2); EOSINOPHILS % (AUTO) 0.5 % (0.0-7.0); HEMATOCRIT 32.4 % (37.0-47.0); HEMOGLOBIN 9.6 g/dl (12.0-16.0); IMMATURE GRANULOCYTE % (AUTO) 0.5 % (0.0-5.0); LYMPHOCYTES # (AUTO) 1.4 K/uL (0.60-3.4); LYMPHOCYTES % (AUTO) 18.7 (10.0-50.0); MEAN CORPUSCULAR HEMOGLOBIN 29.6 pg (27.0-31.0); MEAN CORPUSCULAR HGB CONC 29.6 (31.8-35.4); MONOCYTES # (AUTO) 0.8 K/uL (0.4-2.0); MONOCYTES % (AUTO) 9.9 (0-10); NEUTROPHILS # (AUTO) 5.4 K/ul (2.0-6.9); NEUTROPHILS % (AUTO) 69.4; PLATELET COUNT 203 10^3/uL (140-440); RED BLOOD COUNT 3.24 10^6/ul (4.20-5.40); WHITE BLOOD COUNT 7.71 K/ul (4.6-10.2)
[2017-04-28 04:50] LABS: ABG BASE EXCESS 7 (-2.0-2.0); ABG HCO3 32.6 (22.0-26.0); ABG PCO2 58.5 mmHg (35-45); ABG PH 7.354 (7.35-7.45); ABG TCO2 34 (22.0-28.0)
[2017-04-28] MEDS: ATROVENT 0.02% NEB NEB SCH ×5 (04:53→23:14)
[2017-04-28 04:59] LABS: ALBUMIN 2.3 g/dL (3.4-5.0); ALBUMIN/GLOBULIN RATIO 0.82; ANION GAP 12.4; BILIRUBIN,TOTAL 0.49 mg/dL (0.00-1.20); BUN/CREATININE RATIO 23.21; CALCIUM 8.1 mg/dL (8.2-10.2); CREATININE 0.56 mg/dL (0.60-1.30); POTASSIUM 3.4 mmol/L (3.5-5.10); TOTAL PROTEIN 5.1 g/dL (5.8-8.1)
[2017-04-28] MEDS: XOPENEX 1.25 MG NEB SCH ×4 (04:59→23:00)
[2017-04-28] MEDS: LANOXIN PO SCH (08:30)
[2017-04-28] MEDS: DRONEDARONE HCL PO SCH ×2 (08:57→20:40)
[2017-04-28] MEDS: NYSTOP POWDER TP SCH ×3 (11:00→20:52)
[2017-04-28 14:56] LABS: ABG BASE EXCESS 9 (-2.0-2.0); ABG HCO3 33.2 (22.0-26.0); ABG PCO2 49.7 mmHg (35-45); ABG PH 7.433 (7.35-7.45); ABG TCO2 35 (22.0-28.0)
[2017-04-28] MEDS ORDERED: NORCO 5-325 PO PRN (17:57)
[2017-04-28] MEDS ORDERED: DULCOLAX RC SCH (18:00)
[2017-04-28] MEDS ORDERED: DULCOLAX RC ONE (18:35)
[2017-04-28] MEDS ORDERED: PEPCID ONE (20:36)
[2017-04-28] MEDS: LOPRESSOR PO SCH (20:40)
[2017-04-28] MEDS ORDERED: PEPCID PO SCH (21:00)
[2017-04-28] MEDS: PULMICORT 0.5 MG/2 ML NEB SCH (23:15)
[2017-04-29] MEDS: ZOSYN 3.375 GM 3.375 GM in SODIUM CHLORIDE 100 ML IV SCH ×5 (00:26→23:19)
[2017-04-29] MEDS ORDERED: PULMICORT 0.5 MG/2 ML NEB ONE (04:35)
[2017-04-29 04:42] LABS: BASOPHILS # (AUTO) 0.1 K/uL (0-0.2); BASOPHILS % (AUTO) 0.9 % (0.0-3.0); EOSINOPHILS # (AUTO) 0.1 K/ul (0.0-0.7); EOSINOPHILS % (AUTO) 1.1 % (0.0-7.0); HEMATOCRIT 30.5 % (37.0-47.0); HEMOGLOBIN 9.3 g/dl (12.0-16.0); IMMATURE GRANULOCYTE % (AUTO) 0.5 % (0.0-5.0); LYMPHOCYTES # (AUTO) 1.6 K/uL (0.60-3.4); LYMPHOCYTES % (AUTO) 23.8 (10.0-50.0); MEAN CORPUSCULAR HEMOGLOBIN 29.7 pg (27.0-31.0); MEAN CORPUSCULAR HGB CONC 30.5 (31.8-35.4); MEAN CORPUSCULAR VOLUME 97.4 fl (81.0-99.0); MONOCYTES # (AUTO) 0.7 K/uL (0.4-2.0); MONOCYTES % (AUTO) 10.2 (0-10); NEUTROPHILS # (AUTO) 4.2 K/ul (2.0-6.9); NEUTROPHILS % (AUTO) 63.5; PLATELET COUNT 188 10^3/uL (140-440); RED BLOOD COUNT 3.13 10^6/ul (4.20-5.40); WHITE BLOOD COUNT 6.59 K/ul (4.6-10.2)
[2017-04-29] MEDS: XOPENEX 1.25 MG NEB SCH ×4 (04:47→22:50)
[2017-04-29 04:50] LABS: ABG BASE EXCESS 8 (-2.0-2.0); ABG HCO3 32.8 (22.0-26.0); ABG PCO2 55.4 mmHg (35-45); ABG TCO2 34 (22.0-28.0)
[2017-04-29] MEDS: ATROVENT 0.02% NEB NEB SCH ×5 (04:58→22:50)
[2017-04-29] MEDS: PULMICORT 0.5 MG/2 ML NEB SCH ×2 (05:00→17:17)
[2017-04-29 05:05] LABS: ALBUMIN 2.2 g/dL (3.4-5.0); ALBUMIN/GLOBULIN RATIO 0.81; ANION GAP 11.1; BILIRUBIN,TOTAL 0.49 mg/dL (0.00-1.20); BUN/CREATININE RATIO 21.27; CREATININE 0.47 mg/dL (0.60-1.30); POTASSIUM 3.1 mmol/L (3.5-5.10); TOTAL PROTEIN 4.9 g/dL (5.8-8.1)
[2017-04-29] MEDS: COLACE PO SCH ×3 (07:20→20:08)
[2017-04-29] MEDS: AMITIZA PO SCH ×2 (07:20→20:08)
[2017-04-29] MEDS: SODIUM CHLORIDE 1,000 ML IV SCH ×3 (07:23→23:19)
[2017-04-29] MEDS: PEPCID PO SCH ×2 (09:03→16:03)
[2017-04-29] MEDS: LANOXIN PO SCH (09:03)
[2017-04-29] MEDS: DRONEDARONE HCL PO SCH ×3 (09:05→20:08)
[2017-04-29] MEDS: DULCOLAX RC SCH (09:05)
[2017-04-29] MEDS: LOPRESSOR PO SCH ×2 (09:06→20:07)
[2017-04-29] MEDS: NYSTOP POWDER TP SCH ×3 (09:07→20:08)
[2017-04-29] MEDS: XARELTO PO SCH (16:03)
[2017-04-29] MEDS ORDERED: NON-FORMULARY MEDICATION (Rivaroxaban [Xarelto] 20 MG) PO SCH (17:00)
[2017-04-30 04:27] LABS: BASOPHILS # (AUTO) 0.1 K/uL (0-0.2); EOSINOPHILS # (AUTO) 0.1 K/ul (0.0-0.7); EOSINOPHILS % (AUTO) 1.8 % (0.0-7.0); HEMATOCRIT 32.3 % (37.0-47.0); HEMOGLOBIN 9.8 g/dl (12.0-16.0); IMMATURE GRANULOCYTE % (AUTO) 0.4 % (0.0-5.0); LYMPHOCYTES # (AUTO) 1.6 K/uL (0.60-3.4); LYMPHOCYTES % (AUTO) 22.9 (10.0-50.0); MEAN CORPUSCULAR HEMOGLOBIN 30.1 pg (27.0-31.0); MEAN CORPUSCULAR HGB CONC 30.3 (31.8-35.4); MEAN CORPUSCULAR VOLUME 99.1 fl (81.0-99.0); MONOCYTES # (AUTO) 0.7 K/uL (0.4-2.0); MONOCYTES % (AUTO) 10.3 (0-10); NEUTROPHILS # (AUTO) 4.3 K/ul (2.0-6.9); NEUTROPHILS % (AUTO) 63.6; PLATELET COUNT 200 10^3/uL (140-440); RED BLOOD COUNT 3.26 10^6/ul (4.20-5.40); WHITE BLOOD COUNT 6.81 K/ul (4.6-10.2)
[2017-04-30 04:48] LABS: ALBUMIN 2.1 g/dL (3.4-5.0); ALBUMIN/GLOBULIN RATIO 0.81; ANION GAP 12.1; BILIRUBIN,TOTAL 0.32 mg/dL (0.00-1.20); BUN/CREATININE RATIO 15.21; CALCIUM 7.8 mg/dL (8.2-10.2); CREATININE 0.46 mg/dL (0.60-1.30); POTASSIUM 3.1 mmol/L (3.5-5.10); TOTAL PROTEIN 4.7 g/dL (5.8-8.1)
[2017-04-30] MEDS: ATROVENT 0.02% NEB NEB SCH ×4 (05:03→22:42)
[2017-04-30] MEDS: XOPENEX 1.25 MG NEB SCH ×4 (05:03→22:42)
[2017-04-30] MEDS: PULMICORT 0.5 MG/2 ML NEB SCH ×2 (05:14→17:14)
[2017-04-30] MEDS: ZOSYN 3.375 GM 3.375 GM in SODIUM CHLORIDE 100 ML IV SCH ×3 (05:25→12:14)
[2017-04-30] MEDS: PEPCID PO SCH ×2 (05:41→17:04)
[2017-04-30] MEDS: COLACE PO SCH ×2 (09:15→20:55)
[2017-04-30] MEDS: DRONEDARONE HCL PO SCH ×2 (09:15→20:55)
[2017-04-30] MEDS: LOPRESSOR PO SCH ×2 (09:15→20:55)
[2017-04-30] MEDS: LANOXIN PO SCH (09:16)
[2017-04-30] MEDS: NYSTOP POWDER TP SCH ×3 (09:16→20:55)
[2017-04-30] MEDS: DULCOLAX RC SCH (09:16)
[2017-04-30] MEDS: SODIUM CHLORIDE 1,000 ML IV SCH (12:14)
[2017-04-30] MEDS: SYNTHROID PO SCH (13:48)
[2017-04-30] MEDS: K-DUR PO SCH (13:48)
[2017-04-30] MEDS: XARELTO PO SCH (17:04)
[2017-04-30] MEDS: AMITIZA PO SCH (20:55)
[2017-04-30] MEDS: AUGMENTIN 875-125 MG TAB PO SCH (20:55)
[2017-05-01] MEDS: ATROVENT 0.02% NEB NEB SCH ×4 (05:00→23:00)
[2017-05-01] MEDS: XOPENEX 1.25 MG NEB SCH ×4 (05:00→23:00)
[2017-05-01] MEDS: PULMICORT 0.5 MG/2 ML NEB SCH ×2 (05:12→17:18)
[2017-05-01] MEDS: PEPCID PO SCH ×2 (05:49→16:21)
[2017-05-01] MEDS: SYNTHROID PO SCH (05:49)
[2017-05-01] MEDS: LANOXIN PO SCH (08:44)
[2017-05-01] MEDS: DRONEDARONE HCL PO SCH ×2 (08:44→20:18)
[2017-05-01] MEDS: LOPRESSOR PO SCH ×2 (08:45→20:18)
[2017-05-01] MEDS: AUGMENTIN 875-125 MG TAB PO SCH ×2 (08:45→20:18)
[2017-05-01] MEDS: COLACE PO SCH ×2 (08:45→20:18)
[2017-05-01] MEDS: K-DUR PO SCH (08:45)
[2017-05-01] MEDS: NYSTOP POWDER TP SCH ×3 (08:47→20:19)
[2017-05-01] MEDS: DULCOLAX RC SCH (08:49)
--- NOTE | 2017-05-01 14:05 | DI ---
EXAM: Single view of the chest. History: Follow-up pneumonia Comparison: Chest radiograph 04/27/2017 Findings: Heart size is stable. No pneumothorax. The visualized osseous structures unchanged. Lanza spect underlying emphysema. Increasing left greater than right bilateral consolidation and increasi ng bilateral pleural effusions. No significant interval change in the left upper lobe suprahilar ma ss-like area of consolidation. Impression: Cardiomegaly with increasing bilateral lung infiltrates and increasing bilateral pleura l effusions.
[2017-05-01] MEDS: XARELTO PO SCH (16:21)
[2017-05-01] MEDS: AMITIZA PO SCH (20:18)
[2017-05-02] MEDS: ATROVENT 0.02% NEB NEB SCH ×4 (05:34→23:17)
[2017-05-02] MEDS: XOPENEX 1.25 MG NEB SCH ×5 (05:37→23:20)
[2017-05-02] MEDS: PULMICORT 0.5 MG/2 ML NEB SCH ×2 (05:46→17:17)
[2017-05-02] MEDS: PEPCID PO SCH ×2 (05:59→17:17)
[2017-05-02] MEDS: SYNTHROID PO SCH (05:59)
[2017-05-02] MEDS: NYSTOP POWDER TP SCH ×3 (08:45→20:52)
[2017-05-02] MEDS: AUGMENTIN 875-125 MG TAB PO SCH ×2 (08:46→20:51)
[2017-05-02] MEDS: COLACE PO SCH ×2 (08:46→20:51)
[2017-05-02] MEDS: DRONEDARONE HCL PO SCH ×2 (08:46→20:52)
[2017-05-02] MEDS: K-DUR PO SCH (08:47)
[2017-05-02] MEDS: LANOXIN PO SCH (08:47)
[2017-05-02] MEDS: LOPRESSOR PO SCH ×2 (08:47→20:51)
[2017-05-02] MEDS: DULCOLAX RC SCH (08:47)
[2017-05-02] MEDS: XARELTO PO SCH (17:17)
[2017-05-02] MEDS: AMITIZA PO SCH (20:51)
[2017-05-03] MEDS: ATROVENT 0.02% NEB NEB SCH ×4 (05:15→23:02)
[2017-05-03] MEDS: XOPENEX 1.25 MG NEB SCH ×4 (05:16→23:02)
[2017-05-03] MEDS: PEPCID PO SCH ×2 (05:39→17:24)
[2017-05-03] MEDS: PULMICORT 0.5 MG/2 ML NEB SCH ×2 (05:39→18:56)
[2017-05-03] MEDS: SYNTHROID PO SCH (05:39)
[2017-05-03 05:45] LABS: BUN/CREATININE RATIO 10.41; CALCIUM 8.2 mg/dL (8.2-10.2); CREATININE 0.48 mg/dL (0.60-1.30)
[2017-05-03] MEDS ORDERED: LASIX IVP STA (07:46)
[2017-05-03] MEDS: NYSTOP POWDER TP SCH ×3 (08:33→20:16)
[2017-05-03] MEDS: DRONEDARONE HCL PO SCH ×2 (08:33→20:16)
[2017-05-03] MEDS: LANOXIN PO SCH (08:34)
[2017-05-03] MEDS: AUGMENTIN 875-125 MG TAB PO SCH ×2 (08:34→20:15)
[2017-05-03] MEDS: K-DUR PO SCH (08:34)
[2017-05-03] MEDS: COLACE PO SCH ×2 (08:34→20:16)
[2017-05-03] MEDS: LOPRESSOR PO SCH ×2 (08:34→20:16)
[2017-05-03] MEDS: DULCOLAX RC SCH (08:35)
[2017-05-03] MEDS: XARELTO PO SCH (17:24)
[2017-05-03] MEDS: AMITIZA PO SCH (20:15)
[2017-05-04] MEDS: XOPENEX 1.25 MG NEB SCH ×4 (05:27→23:04)
[2017-05-04] MEDS: ATROVENT 0.02% NEB NEB SCH ×4 (05:27→23:04)
[2017-05-04] MEDS: SYNTHROID PO SCH (05:38)
[2017-05-04] MEDS: PEPCID PO SCH ×2 (05:38→17:36)
[2017-05-04] MEDS: PULMICORT 0.5 MG/2 ML NEB SCH ×2 (05:45→17:23)
[2017-05-04] MEDS: LANOXIN PO SCH (09:01)
[2017-05-04] MEDS: K-DUR PO SCH (09:02)
[2017-05-04] MEDS: LOPRESSOR PO SCH ×2 (09:02→20:43)
[2017-05-04] MEDS: AUGMENTIN 875-125 MG TAB PO SCH ×2 (09:02→20:42)
[2017-05-04] MEDS: COLACE PO SCH ×2 (09:02→20:42)
[2017-05-04] MEDS: NYSTOP POWDER TP SCH ×3 (09:03→20:56)
[2017-05-04] MEDS: DULCOLAX RC SCH (09:03)
[2017-05-04] MEDS: DRONEDARONE HCL PO SCH ×2 (09:03→20:42)
[2017-05-04] MEDS ORDERED: LASIX IVP STA (17:04)
[2017-05-04] MEDS: XARELTO PO SCH (17:36)
[2017-05-04] MEDS: AMITIZA PO SCH (20:42)
[2017-05-05] MEDS: ATROVENT 0.02% NEB NEB SCH ×4 (04:57→22:09)
[2017-05-05] MEDS: XOPENEX 1.25 MG NEB SCH ×4 (04:58→22:09)
[2017-05-05] MEDS: PULMICORT 0.5 MG/2 ML NEB SCH ×2 (05:20→17:29)
[2017-05-05] MEDS: PEPCID PO SCH ×2 (06:09→16:23)
[2017-05-05] MEDS: SYNTHROID PO SCH (06:09)
[2017-05-05] MEDS: COLACE PO SCH ×2 (10:22→21:04)
[2017-05-05] MEDS: LASIX TAB PO SCH (10:22)
[2017-05-05] MEDS: AUGMENTIN 875-125 MG TAB PO SCH ×2 (10:22→21:04)
[2017-05-05] MEDS: K-DUR PO SCH (10:23)
[2017-05-05] MEDS: LANOXIN PO SCH (10:23)
[2017-05-05] MEDS: DULCOLAX RC SCH ×2 (10:23→10:31)
[2017-05-05] MEDS: LOPRESSOR PO SCH ×2 (10:24→21:04)
[2017-05-05] MEDS: NYSTOP POWDER TP SCH ×3 (10:24→21:04)
[2017-05-05] MEDS: DRONEDARONE HCL PO SCH ×2 (10:25→21:03)
[2017-05-05] MEDS: XARELTO PO SCH (17:34)
[2017-05-05] MEDS: AMITIZA PO SCH (21:04)
[2017-05-06] MEDS: ATROVENT 0.02% NEB NEB SCH ×4 (05:12→23:02)
[2017-05-06] MEDS: XOPENEX 1.25 MG NEB SCH ×4 (05:12→23:03)
[2017-05-06] MEDS: PULMICORT 0.5 MG/2 ML NEB SCH ×2 (05:24→18:30)
[2017-05-06] MEDS: SYNTHROID PO SCH (05:30)
[2017-05-06] MEDS: LASIX TAB PO SCH (05:30)
[2017-05-06] MEDS: PEPCID PO SCH ×2 (05:30→19:20)
[2017-05-06 06:44] LABS: ANION GAP 12.8; BUN/CREATININE RATIO 14.28; CALCIUM 8.5 mg/dL (8.2-10.2); CREATININE 0.49 mg/dL (0.60-1.30); POTASSIUM 3.8 mmol/L (3.5-5.10)
[2017-05-06] MEDS: LOPRESSOR PO SCH ×2 (08:26→20:48)
[2017-05-06] MEDS: DRONEDARONE HCL PO SCH ×2 (08:26→20:48)
[2017-05-06] MEDS: K-DUR PO SCH (08:27)
[2017-05-06] MEDS: COLACE PO SCH ×2 (08:27→20:48)
[2017-05-06] MEDS: AUGMENTIN 875-125 MG TAB PO SCH ×2 (08:27→20:48)
[2017-05-06] MEDS: LANOXIN PO SCH (08:27)
[2017-05-06] MEDS: DULCOLAX RC SCH (08:34)
[2017-05-06] MEDS: NYSTOP POWDER TP SCH ×3 (09:00→20:48)
[2017-05-06] MEDS: XARELTO PO SCH (19:20)
[2017-05-06] MEDS ORDERED: DULCOLAX RC PRN (19:27)
[2017-05-06] MEDS: AMITIZA PO SCH (20:48)
[2017-05-07] MEDS: XOPENEX 1.25 MG NEB SCH ×4 (05:20→23:43)
[2017-05-07] MEDS: ATROVENT 0.02% NEB NEB SCH ×4 (05:20→23:43)
[2017-05-07] MEDS: LASIX TAB PO SCH (05:32)
[2017-05-07] MEDS: PEPCID PO SCH ×2 (05:32→17:13)
[2017-05-07] MEDS: SYNTHROID PO SCH (05:32)
[2017-05-07] MEDS: PULMICORT 0.5 MG/2 ML NEB SCH ×2 (05:39→17:00)
[2017-05-07] MEDS: AUGMENTIN 875-125 MG TAB PO SCH ×2 (09:51→21:38)
[2017-05-07] MEDS: K-DUR PO SCH (09:51)
[2017-05-07] MEDS: LANOXIN PO SCH (09:51)
[2017-05-07] MEDS: LOPRESSOR PO SCH ×2 (09:52→21:39)
[2017-05-07] MEDS: NYSTOP POWDER TP SCH ×3 (09:52→21:38)
[2017-05-07] MEDS: COLACE PO SCH ×2 (09:52→21:38)
[2017-05-07] MEDS: DRONEDARONE HCL PO SCH ×2 (09:56→21:37)
[2017-05-07] MEDS: XARELTO PO SCH (17:13)
[2017-05-07] MEDS ORDERED: LASIX TAB PO SCH (17:56)
[2017-05-07] MEDS: AMITIZA PO SCH (21:37)
[2017-05-08] MEDS: XOPENEX 1.25 MG NEB SCH ×4 (05:00→22:50)
[2017-05-08] MEDS: ATROVENT 0.02% NEB NEB SCH ×4 (05:00→22:50)
[2017-05-08] MEDS: PULMICORT 0.5 MG/2 ML NEB SCH ×2 (05:28→17:15)
[2017-05-08] MEDS: PEPCID PO SCH ×2 (05:43→16:20)
[2017-05-08] MEDS: SYNTHROID PO SCH (05:44)
[2017-05-08] MEDS: LANOXIN PO SCH (09:16)
[2017-05-08] MEDS: LOPRESSOR PO SCH ×2 (09:16→22:21)
[2017-05-08] MEDS: NYSTOP POWDER TP SCH ×3 (09:16→22:21)
[2017-05-08] MEDS: COLACE PO SCH ×2 (09:16→22:21)
[2017-05-08] MEDS: DRONEDARONE HCL PO SCH ×2 (09:17→22:26)
[2017-05-08] MEDS: K-DUR PO SCH (09:17)
[2017-05-08] MEDS: AUGMENTIN 875-125 MG TAB PO SCH ×2 (09:17→22:21)
[2017-05-08] MEDS: XARELTO PO SCH (16:20)
[2017-05-08] MEDS: AMITIZA PO SCH (22:20)
[2017-05-09] MEDS: ATROVENT 0.02% NEB NEB SCH ×4 (05:05→23:06)
[2017-05-09] MEDS: XOPENEX 1.25 MG NEB SCH ×4 (05:05→23:06)
[2017-05-09 05:09] LABS: BASOPHILS # (AUTO) 0.1 K/uL (0-0.2); BASOPHILS % (AUTO) 0.9 % (0.0-3.0); EOSINOPHILS # (AUTO) 0.3 K/ul (0.0-0.7); EOSINOPHILS % (AUTO) 2.8 % (0.0-7.0); HEMATOCRIT 35.8 % (37.0-47.0); IMMATURE GRANULOCYTE % (AUTO) 0.3 % (0.0-5.0); LYMPHOCYTES % (AUTO) 20.4 (10.0-50.0); MEAN CORPUSCULAR HEMOGLOBIN 29.4 pg (27.0-31.0); MEAN CORPUSCULAR HGB CONC 30.7 (31.8-35.4); MEAN CORPUSCULAR VOLUME 95.7 fl (81.0-99.0); MONOCYTES # (AUTO) 0.9 K/uL (0.4-2.0); MONOCYTES % (AUTO) 8.9 (0-10); NEUTROPHILS # (AUTO) 6.4 K/ul (2.0-6.9); NEUTROPHILS % (AUTO) 66.7; PLATELET COUNT 269 10^3/uL (140-440); RED BLOOD COUNT 3.74 10^6/ul (4.20-5.40); WHITE BLOOD COUNT 9.56 K/ul (4.6-10.2)
[2017-05-09] MEDS: PULMICORT 0.5 MG/2 ML NEB SCH ×2 (05:26→17:45)
[2017-05-09 05:34] LABS: ANION GAP 11.8; BUN/CREATININE RATIO 18.51; CALCIUM 8.7 mg/dL (8.2-10.2); CREATININE 0.54 mg/dL (0.60-1.30); POTASSIUM 3.8 mmol/L (3.5-5.10)
[2017-05-09] MEDS: LASIX TAB PO SCH (06:02)
[2017-05-09] MEDS: SYNTHROID PO SCH (06:02)
[2017-05-09] MEDS: PEPCID PO SCH ×2 (06:02→16:12)
[2017-05-09] MEDS: DRONEDARONE HCL PO SCH ×2 (11:15→21:18)
[2017-05-09] MEDS: NYSTOP POWDER TP SCH ×3 (11:29→21:19)
[2017-05-09] MEDS: LANOXIN PO SCH (11:30)
[2017-05-09] MEDS: COLACE PO SCH ×2 (11:30→21:18)
[2017-05-09] MEDS: LOPRESSOR PO SCH ×2 (11:30→21:01)
[2017-05-09] MEDS: K-DUR PO SCH (11:31)
[2017-05-09] MEDS: AUGMENTIN 875-125 MG TAB PO SCH ×2 (11:31→21:18)
[2017-05-09] MEDS: XARELTO PO SCH (16:12)
[2017-05-09] MEDS: AMITIZA PO SCH (21:01)
[2017-05-09] MEDS ORDERED: SODIUM CHLORIDE 500 ML IV STA (21:03)
[2017-05-09 21:47] LABS: TROPONIN I 0.16 ng/ml (0.0000-0.4000)
[2017-05-10] MEDS: XOPENEX 1.25 MG NEB SCH ×4 (05:00→23:00)
[2017-05-10] MEDS: ATROVENT 0.02% NEB NEB SCH ×4 (05:00→23:00)
[2017-05-10] MEDS: PULMICORT 0.5 MG/2 ML NEB SCH ×2 (05:19→17:32)
[2017-05-10] MEDS: PEPCID PO SCH ×2 (06:11→17:13)
[2017-05-10] MEDS: SYNTHROID PO SCH (06:11)
[2017-05-10] MEDS: LASIX TAB PO SCH (06:11)
[2017-05-10] MEDS: LANOXIN PO SCH (08:50)
[2017-05-10] MEDS: DRONEDARONE HCL PO SCH ×2 (08:50→21:30)
[2017-05-10] MEDS: AUGMENTIN 875-125 MG TAB PO SCH ×2 (08:51→21:30)
[2017-05-10] MEDS: K-DUR PO SCH (08:51)
[2017-05-10] MEDS: NYSTOP POWDER TP SCH ×3 (08:51→21:29)
[2017-05-10] MEDS: COLACE PO SCH ×2 (09:12→21:30)
[2017-05-10] MEDS: LOPRESSOR PO SCH ×2 (09:12→21:30)
[2017-05-10] MEDS: XARELTO PO SCH (17:13)
[2017-05-10] MEDS: AMITIZA PO SCH (21:29)
[2017-05-11] MEDS: XOPENEX 1.25 MG NEB SCH ×4 (05:15→23:00)
[2017-05-11] MEDS: ATROVENT 0.02% NEB NEB SCH ×4 (05:15→23:00)
[2017-05-11] MEDS: PULMICORT 0.5 MG/2 ML NEB SCH ×2 (05:34→17:03)
[2017-05-11] MEDS: PEPCID PO SCH ×2 (06:05→17:10)
[2017-05-11] MEDS: SYNTHROID PO SCH (06:05)
[2017-05-11] MEDS: LASIX TAB PO SCH (06:06)
[2017-05-11] MEDS: K-DUR PO SCH (08:56)
[2017-05-11] MEDS: COLACE PO SCH ×2 (08:56→20:29)
[2017-05-11] MEDS: LANOXIN PO SCH (08:56)
[2017-05-11] MEDS: LOPRESSOR PO SCH ×2 (08:56→20:29)
[2017-05-11] MEDS: AUGMENTIN 875-125 MG TAB PO SCH ×2 (08:57→20:29)
[2017-05-11] MEDS: NYSTOP POWDER TP SCH ×3 (08:57→20:30)
[2017-05-11] MEDS: DRONEDARONE HCL PO SCH (09:30)
[2017-05-11] MEDS ORDERED: MULTAQ PO SCH ×2 (11:00)
[2017-05-11] MEDS: XARELTO PO SCH (17:10)
[2017-05-11] MEDS: AMITIZA PO SCH (20:29)
[2017-05-11] MEDS: MULTAQ PO SCH (20:29)
[2017-05-12] MEDS: ATROVENT 0.02% NEB NEB SCH ×4 (05:33→23:43)
[2017-05-12] MEDS: XOPENEX 1.25 MG NEB SCH ×4 (05:33→23:43)
[2017-05-12] MEDS: PULMICORT 0.5 MG/2 ML NEB SCH ×2 (05:34→16:58)
[2017-05-12] MEDS: PEPCID PO SCH ×2 (06:05→16:46)
[2017-05-12] MEDS: LASIX TAB PO SCH (06:05)
[2017-05-12] MEDS: SYNTHROID PO SCH (06:05)
[2017-05-12] MEDS: LANOXIN PO SCH (08:26)
[2017-05-12] MEDS: K-DUR PO SCH (08:26)
[2017-05-12] MEDS: MULTAQ PO SCH ×2 (08:26→20:57)
[2017-05-12] MEDS: NYSTOP POWDER TP SCH ×3 (08:26→20:57)
[2017-05-12] MEDS: COLACE PO SCH ×2 (08:26→20:57)
[2017-05-12] MEDS: AUGMENTIN 875-125 MG TAB PO SCH (08:26)
[2017-05-12] MEDS: LOPRESSOR PO SCH ×2 (08:26→20:57)
[2017-05-12] MEDS: XARELTO PO SCH (16:46)
[2017-05-12] MEDS: AMITIZA PO SCH (20:57)
[2017-05-13] MEDS: XOPENEX 1.25 MG NEB SCH ×4 (05:00→23:07)
[2017-05-13] MEDS: ATROVENT 0.02% NEB NEB SCH ×4 (05:00→23:07)
[2017-05-13] MEDS: PULMICORT 0.5 MG/2 ML NEB SCH ×2 (05:36→17:22)
[2017-05-13] MEDS: PEPCID PO SCH ×2 (05:44→18:19)
[2017-05-13] MEDS: LASIX TAB PO SCH (05:44)
[2017-05-13] MEDS: SYNTHROID PO SCH (05:44)
[2017-05-13] MEDS: NYSTOP POWDER TP SCH ×3 (09:20→21:12)
[2017-05-13] MEDS: COLACE PO SCH ×3 (09:20→20:48)
[2017-05-13] MEDS: LOPRESSOR PO SCH ×2 (09:21→21:11)
[2017-05-13] MEDS: K-DUR PO SCH (09:21)
[2017-05-13] MEDS: LANOXIN PO SCH (09:21)
[2017-05-13] MEDS: MULTAQ PO SCH ×2 (09:22→21:12)
--- NOTE | 2017-05-13 10:35 | DI ---
EXAM: Chest one view, frontal view only. HISTORY: Pneumonia follow-up. COMPARISON: 05/01/2017. FINDINGS: Heart is enlarged. Bibasilar consolidation and bilateral pleural effusions again noted. There appears to be some improved aeration in the left lung although there is persistent mass-like consolidation in the left suprahilar region. No pneumothorax identified. IMPRESSION: 1. Persistent bilateral pleural effusions and bibasilar consolidation. Possible improved aeration in the left lung. 2. Stable mass-like consolidation in the left suprahilar region.
[2017-05-13] MEDS: XARELTO PO SCH (18:19)
[2017-05-13] MEDS: AMITIZA PO SCH (21:11)
[2017-05-14] MEDS: ATROVENT 0.02% NEB NEB SCH ×4 (05:00→23:02)
[2017-05-14] MEDS: XOPENEX 1.25 MG NEB SCH ×4 (05:01→23:02)
[2017-05-14] MEDS: PULMICORT 0.5 MG/2 ML NEB SCH ×2 (05:15→17:27)
[2017-05-14] MEDS: SYNTHROID PO SCH (06:00)
[2017-05-14] MEDS: LASIX TAB PO SCH (06:00)
[2017-05-14] MEDS: PEPCID PO SCH ×2 (06:00→16:19)
[2017-05-14] MEDS: NYSTOP POWDER TP SCH ×3 (08:53→21:02)
[2017-05-14] MEDS: MULTAQ PO SCH ×2 (08:53→21:01)
[2017-05-14] MEDS: LANOXIN PO SCH (08:54)
[2017-05-14] MEDS: K-DUR PO SCH (08:54)
[2017-05-14] MEDS: COLACE PO SCH ×2 (08:54→21:01)
[2017-05-14] MEDS: LOPRESSOR PO SCH ×2 (08:54→21:02)
--- NOTE | 2017-05-14 10:35 | HP ---
DATE OF ADMISSION: 04/25/17 DATE OF SERVICE: 04/27/17 PATIENT PROFILE: The patient is a 71-year-old female, resident of [facility]. HISTORY OF PRESENT ILLNESS: Ms. Bradford has end-stage COPD with chronic respiratory failure from both a hypoxic and at times hypercarbic nature. She is frequently hospitalized with respiratory failure. I saw her on senior care rounds 04/15 and she was doing well. Then, she developed rather sudden onset of significant lethargy; she was sent to [facility] Emergency Department with a pH of 7.06, a pc02 of greater than 130; she was obviously confused/encephalopathic. Chest x-ray is suggestive for questionable pneumonia left lower lobe. She was placed on nebulized bronchodilators, steroids, IV antibiotics (urine had abnormalities) and BIPAP; she was admitted. She is a DNR without a desire to be intubated. Dr. Denis covered over the weekend. She is much improved today. PAST HISTORY: CHILDHOOD: Normal. ALLERGIES/INTOLERANCE: FLAGYL, QUESTIONABLE (RASH), LESCOL (GI UPSET), LEVAQUIN (DIARRHEA), SULFA (HIVES) MEDICATIONS: (HALF-WAY) 1. Acetaminophen (Tylenol) 325 mg tablet, two tab p.o. q.4h p.r.n. 2. Digoxin 250 mcg tablet p.o. daily 3. Levalbuterol (Xopenex) 0.63 mg/3 ml vial neb, one application INH q.8hr p.r.n. 4. Magnesium Hydroxide (Milk of Magnesia) 30 mL p.o. q.24hr p.r.n. 5. Polyethylene Glycol 3350 (Miralax) 17 mg p.o. q.12h p.r.n. 6. Bisacodyl 10 mg RC q.24H 7. Albuterol Sulfate 3 mL INH q.6h p.r.n. 8. Ipratropium [place] 0.02% neb (Atrovent 0.02% neb) one vial INH t.i.d. 9. Budesonide (Pulmicort 0.5 mg/2 mL) one vial INH q.12hr 10. Metoprolol Tartrate (Lopressor) 25 mg p.o. b.i.d. 11. Dronedarone HCI (Multaq) 400 mg tablet, one tab p.o. q.12hr 12. Docusate Sodium (Colace) 100 mg capsule, one cap p.o. b.i.d. 13. Rivaroxaban (Xarelto) 20 mg p.o. 1700 14. Tiotropium [place] (Spiriva) 18 mcg cap with Dev, one cap INH daily 15. Levothyroxine (Synthroid) 100 mcg p.o. q.d a.c. 16. Lubiprostone (Amitiza) 24 mcg capsule, one tab p.o. bedtime 17. Pediatric Multivitamin Comb#19/FA (Children's Multi-Vit Gummies) 200 mcg tab , two tab p.o. daily 18. Linaclotide (Linzess) 290 mcg capsule, 290 mcg p.o. q.25h p.r.n. 19. Nystatin (Nystop Powder) one application TP b.i.d. 20. Famotidine (Pepcid) 20 mg p.o. b.i.d. 21. Hydrocodone/Acetaminophen ([place] 5-325 tablet) one each p.o. q.6hr p.r.n. PAST MEDICAL/SURGICAL HISTORY: 1. I, Para I, AB 0 2. Ankle surgery in 1965 3. Exostosis from the right mastoid removed in 1965 4. [place] stays from 06/04/2014 through 06/05/2014 for shortness of breath in swing bed and above. HOSPITALIZATIONS/SURGERIES/PROCEDURES: [facility], admission from 03/04/1999 for COPD exacerbation; 2006 through 10/04/2006 for ventilator and COPD exacerbation; 06/05/2014 through 06/13/2014 for COPD, transferred to [facility], 06/13/2014 through 06/30/2014 for TCU; 03/17 through 04/03/17 LTAC for respiratory failure. SOCIAL HISTORY: Habits: Smoker age 21, one-half pack per day and says she quit in 2006 but she has resumed smoking. in 1988. 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 She has one son. FAMILY HISTORY: Skin cancer in father. Osteoporosis in mother. Emphysema in mother. Diabetes in father. REVIEW OF SYSTEMS: GENERAL: Inactive/slower with limits, speed, "SAMNL" for age and shortness of breath. Sleep is okay usually. No fever now. ENDOCRINE: No syncope, near or diaphoretic sweaty spells. HEENT: No head injury or headache. No vision change. Some mild hearing loss. Ears are without pain/drainage. No sore throat. No nasal/sinus congestion/ drainage. No epistaxis. CHEST: No chest wall tenderness or mass. Usual cough with wheeze, shortness of breath. No hemoptysis. CARDIOVASCULAR: No chest pain, palpitations, on/off occasional ankle edema. GASTROINTESTINAL: No heartburn, dysphagia. No abdominal pain, diarrhea, constipation, rectal bleeding, or melena. GENITOURINARY: Voids without dysuria or incontinence to completion. ORTHOPEDIC: No painful/swollen joints but various on/off sore. No sore neck or back. No acute neck or back pain without recent injury. Best at senior care transfer/ wheelchair use. NEUROLOGIC: No dizziness, weakness of extremities. No numbness or paresthesias. PSYCHIATRIC: Oriented times three. Pleasant, calm, well-kept. 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 PHYSICAL EXAMINATION: GENERAL: Ill-appearing, appropriate for age white female with BIPAP in no acute distress. Thin. INTEGUMENT: Skin turgor is excellent without wound, rash, lesion other than abrasion over nasal bridge. HEENT: Normocephalic without trauma. Pupils equal, round, reactive to light. Extraocular movements full without nystagmus. Ears: External canals nonobstructive, nontender, without redness. Tympanic membranes judi with bony structures intact. Mouth: Oral cavity without growths, exudates and is moist. Throat: Posterior pharynx without mass, obstruction or redness. NECK: Supple. No thyromegaly, mass, tenderness, lymphadenopathy. CV: Regular rhythm. No murmur or gallop. Trace equal lower extremity edema. Posterior pulses intact. No carotid bruit. CHEST: No chest wall tenderness or mass. LUNGS: Symmetric motion with coarse/reduced to auscultation. No dullness to percussion. ABDOMEN: Soft, nontender without mass ORTHO: Symmetric extremities without swelling/point tenderness. Full gross range of motion; mild weakness. NEURO: Cranial nerves 2-12 grossly intact. Symmetric facies. 0/4 times bicep equal reflexes. UE/LE 1-2/5 strength throughout. Nonfocal use of extremities. Speech is hoarse. PSYCH: Oriented times three. Pleasant, calm, well-kept. Purposeful/directed conversation with intact short/long gross memory. ASSESSMENT/PROBLEM LIST: 0. 71-year-old white female, advanced age. 1. Allergies/intolerances: See above. 2. Procedural history: See above. 3. Family history: See above. 4. 1, Para 1, AB 0. 5. Menopausal. 6. Tobacco/nicotine abuse/addiction. 7. Disability. 8. Congestive heart failure, diastolic by echocardiogram. 9. SVT. 10. Lanoxin therapy. 11. Chronic kidney disease, Stage 3. 12. COPD, end-stage. 13. Constipation, chronic. 14. Pulmonary hypertension. 15. Lower extremity edema. 16. Hyperlipidemia. 17. Hypothyroidism replace. 18. Chronic low back pain. 19. Chronic neck pain. 20. Respiratory failure, hypoxemic, ch ronic. 21. Respiratory failure, hypercarbia, chronic. 22. Shortness of breath, chronic. 23. Varicose veins. 24. Vitamin B12 deficiency. 25. Vitamin D deficiency. 26. History of ulcers of lower extremities. 27. Degenerative joint disease, diffuse. 28. Gait difficulties, chronic. 29. Thoracic aneurysm with dissection 5.3 cm (not amenable to intervention). 30. Anticoagulation - Xarelto (history of DVT, prevention DVT, atrial fib). REASONS FOR ADMISSION: # Acute respiratory failure on chronic-hypoxic and hypercarbic # Acidosis 7.06 (respiratory failure). # Pneumonia-NH/hospital exposed. # Shortness of breath. # COPD. # Adult failure to thrive. # Cardiac arrhythmias (paroxysmal atrial fibrillation/SVT. # Abnormal urine 3+ leuk, 30-50 WBC, 3+ bacteria # Malnutrition, decreased albumin PLAN: 1. Rx-reviewed; ordered as needed and will review daily/as needed. Includes anticoagulation for DVT prevention (Xarelto). 2. LAB reviewed; ordered as needed and will review daily as needed. 3. Imaging reviewed; ordered as needed and will review daily as needed. 4. Consults none. 5. Discharge planning: Expecting patient back to [facility]. 6. Code Status - DNR. CC: [facility]
[2017-05-14] MEDS: XARELTO PO SCH (16:19)
[2017-05-14] MEDS: AMITIZA PO SCH (21:01)
[2017-05-15] MEDS: ATROVENT 0.02% NEB NEB SCH ×4 (05:17→23:16)
[2017-05-15] MEDS: XOPENEX 1.25 MG NEB SCH ×4 (05:17→23:17)
[2017-05-15] MEDS: PULMICORT 0.5 MG/2 ML NEB SCH ×2 (05:29→17:21)
[2017-05-15] MEDS: PEPCID PO SCH ×2 (05:56→16:50)
[2017-05-15] MEDS: SYNTHROID PO SCH (05:56)
[2017-05-15] MEDS: LASIX TAB PO SCH (05:56)
[2017-05-15] MEDS: K-DUR PO SCH (09:32)
[2017-05-15] MEDS: MULTAQ PO SCH ×2 (09:32→20:17)
[2017-05-15] MEDS: LOPRESSOR PO SCH ×2 (09:32→20:18)
[2017-05-15] MEDS: LANOXIN PO SCH (09:33)
[2017-05-15] MEDS: NYSTOP POWDER TP SCH ×3 (09:33→20:18)
[2017-05-15] MEDS: COLACE PO SCH ×2 (09:36→22:19)
[2017-05-15] MEDS: XARELTO PO SCH (16:50)
[2017-05-15] MEDS: AMITIZA PO SCH (20:17)
[2017-05-16] MEDS: ATROVENT 0.02% NEB NEB SCH ×4 (05:08→23:02)
[2017-05-16] MEDS: XOPENEX 1.25 MG NEB SCH ×4 (05:09→23:02)
[2017-05-16] MEDS: PULMICORT 0.5 MG/2 ML NEB SCH ×2 (05:10→18:05)
[2017-05-16] MEDS: LASIX TAB PO SCH (05:54)
[2017-05-16] MEDS: SYNTHROID PO SCH (05:54)
[2017-05-16] MEDS: PEPCID PO SCH ×2 (05:54→17:55)
[2017-05-16] MEDS: MULTAQ PO SCH ×2 (08:23→20:10)
[2017-05-16] MEDS: NYSTOP POWDER TP SCH ×3 (08:23→20:11)
[2017-05-16] MEDS: LANOXIN PO SCH (08:23)
[2017-05-16] MEDS: LOPRESSOR PO SCH ×2 (08:23→20:10)
[2017-05-16] MEDS: K-DUR PO SCH (08:23)
[2017-05-16] MEDS: COLACE PO SCH ×2 (08:26→20:11)
[2017-05-16] MEDS: XARELTO PO SCH (17:55)
[2017-05-16] MEDS: AMITIZA PO SCH (20:10)
[2017-05-17] MEDS: ATROVENT 0.02% NEB NEB SCH ×4 (05:05→23:09)
[2017-05-17] MEDS: XOPENEX 1.25 MG NEB SCH ×4 (05:06→23:09)
[2017-05-17] MEDS: PULMICORT 0.5 MG/2 ML NEB SCH ×2 (05:07→17:11)
[2017-05-17] MEDS: LASIX TAB PO SCH (05:30)
[2017-05-17] MEDS: SYNTHROID PO SCH (05:30)
[2017-05-17] MEDS: PEPCID PO SCH ×2 (05:30→17:45)
[2017-05-17] MEDS: MULTAQ PO SCH ×2 (08:47→20:26)
[2017-05-17] MEDS: LOPRESSOR PO SCH ×2 (08:47→20:25)
[2017-05-17] MEDS: LANOXIN PO SCH (08:47)
[2017-05-17] MEDS: K-DUR PO SCH (08:47)
[2017-05-17] MEDS: NYSTOP POWDER TP SCH ×3 (08:49→20:28)
[2017-05-17] MEDS: COLACE PO SCH ×2 (08:51→20:28)
[2017-05-17] MEDS: CALMOSEPTINE OINTMENT TP PRN (14:31)
[2017-05-17] MEDS: XARELTO PO SCH (17:45)
[2017-05-17] MEDS: AMITIZA PO SCH (20:26)
[2017-05-18] MEDS: PULMICORT 0.5 MG/2 ML NEB SCH ×2 (05:00→17:15)
[2017-05-18] MEDS: XOPENEX 1.25 MG NEB SCH ×4 (05:00→23:00)
[2017-05-18] MEDS: ATROVENT 0.02% NEB NEB SCH ×4 (05:00→23:00)
[2017-05-18] MEDS: LASIX TAB PO SCH (05:51)
[2017-05-18] MEDS: PEPCID PO SCH ×2 (05:51→16:11)
[2017-05-18] MEDS: SYNTHROID PO SCH (05:53)
[2017-05-18] MEDS: MULTAQ PO SCH ×2 (08:13→21:35)
[2017-05-18] MEDS: K-DUR PO SCH (08:13)
[2017-05-18] MEDS: COLACE PO SCH ×2 (08:14→21:35)
[2017-05-18] MEDS: LANOXIN PO SCH (08:14)
[2017-05-18] MEDS: NYSTOP POWDER TP SCH ×3 (08:14→21:35)
[2017-05-18] MEDS: LOPRESSOR PO SCH ×2 (08:14→21:35)
[2017-05-18] MEDS: XARELTO PO SCH (16:11)
[2017-05-18] MEDS: AMITIZA PO SCH (21:35)
[2017-05-19] MEDS: PULMICORT 0.5 MG/2 ML NEB SCH ×2 (05:00→17:10)
[2017-05-19] MEDS: ATROVENT 0.02% NEB NEB SCH ×3 (05:00→17:21)
[2017-05-19] MEDS: XOPENEX 1.25 MG NEB SCH ×3 (05:00→17:11)
[2017-05-19] MEDS: SYNTHROID PO SCH (05:32)
[2017-05-19] MEDS: PEPCID PO SCH ×2 (05:32→18:03)
[2017-05-19] MEDS: LASIX TAB PO SCH (05:32)
[2017-05-19] MEDS: LANOXIN PO SCH (10:00)
[2017-05-19] MEDS: COLACE PO SCH ×2 (10:00→20:31)
[2017-05-19] MEDS: MULTAQ PO SCH ×2 (10:00→20:31)
[2017-05-19] MEDS: NYSTOP POWDER TP SCH ×3 (10:00→20:33)
[2017-05-19] MEDS: LOPRESSOR PO SCH ×2 (10:00→20:31)
[2017-05-19] MEDS: K-DUR PO SCH (10:00)
[2017-05-19] MEDS: XARELTO PO SCH (18:04)
[2017-05-19] MEDS: AMITIZA PO SCH (20:30)
[2017-05-20] MEDS: ATROVENT 0.02% NEB NEB SCH ×3 (00:18→11:03)
[2017-05-20] MEDS: XOPENEX 1.25 MG NEB SCH ×3 (00:18→11:04)
[2017-05-20] MEDS: PULMICORT 0.5 MG/2 ML NEB SCH (05:25)
[2017-05-20] MEDS: PEPCID PO SCH (05:42)
[2017-05-20] MEDS: LASIX TAB PO SCH (05:42)
[2017-05-20] MEDS: SYNTHROID PO SCH (05:43)
[2017-05-20] MEDS: CALMOSEPTINE OINTMENT TP PRN (06:06)
[2017-05-20] MEDS: MULTAQ PO SCH (08:02)
[2017-05-20] MEDS: LANOXIN PO SCH (08:03)
[2017-05-20] MEDS: K-DUR PO SCH (08:03)
[2017-05-20] MEDS: LOPRESSOR PO SCH (08:03)
[2017-05-20] MEDS: COLACE PO SCH (08:03)
[2017-05-20] MEDS: NYSTOP POWDER TP SCH ×2 (08:04→14:03)
[2017-05-20 16:03] VITALS: BP 162/53; TEMP 97
--- NOTE | 2017-05-21 09:49 | DS ---
PATIENT PROFILE: The patient is a 71-year-old female, resident of [facility]. HISTORY OF PRESENT ILLNESS: Ms. Bradford has end-stage COPD with chronic respiratory failure from both a hypoxic and at times hypercarbic nature. She is frequently hospitalized with respiratory failure. I saw her on long term rounds 04/15 and she was doing well. Then, she developed rather sudden onset of significant lethargy; she was sent to [facility] Emergency Department with a pH of 7.06, a pc02 of greater than 130; she was obviously confused/encephalopathic. Chest x-ray is suggestive for questionable pneumonia left lower lobe. She was placed on nebulized bronchodilators, steroids, IV antibiotics (urine had abnormalities) and BIPAP; she was admitted. She is a DNR without a desire to be intubated. Dr. Denis covered over the weekend. She is much improved today. PAST HISTORY: CHILDHOOD: Normal. ALLERGIES/INTOLERANCE: FLAGYL, QUESTIONABLE (RASH), LESCOL (GI UPSET), LEVAQUIN (DIARRHEA), SULFA (HIVES) MEDICATIONS: ([facility]) 1. Acetaminophen (Tylenol) 325 mg tablet, two tab p.o. q.4h p.r.n. 2. Digoxin 250 mcg tablet p.o. daily 3. Levalbuterol (Xopenex) 0.63 mg/3 ml vial neb, one application INH q.8hr p.r.n. 4. Magnesium Hydroxide (Milk of Magnesia) 30 mL p.o. q.24hr p.r.n. 5. Polyethylene Glycol 3350 (Miralax) 17 mg p.o. q.12h p.r.n. 6. Bisacodyl 10 mg RC q.24H 7. Albuterol Sulfate 3 mL INH q.6h p.r.n. 8. Ipratropium [place] 0.02% neb (Atrovent 0.02% neb) one vial INH t.i.d. 9. Budesonide (Pulmicort 0.5 mg/2 mL) one vial INH q.12hr 10. Metoprolol Tartrate (Lopressor) 25 mg p.o. b.i.d. 11. Dronedarone HCI (Multaq) 400 mg tablet, one tab p.o. q.12hr 12. Docusate Sodium (Colace) 100 mg capsule, one cap p.o. b.i.d. 13. Rivaroxaban (Xarelto) 20 mg p.o. 1700 14. Tiotropium [place] (Spiriva) 18 mcg cap with Dev, one cap INH daily 15. Levothyroxine (Synthroid) 100 mcg p.o. q.d a.c. 16. Lubiprostone (Amitiza) 24 mcg capsule, one tab p.o. bedtime 17. Pediatric Multivitamin Comb#19/FA (Children's Multi-Vit Gummies) 200 mcg tab , two tab p.o. daily 18. Linaclotide (Linzess) 290 mcg capsule, 290 mcg p.o. q.25h p.r.n. 19. Nystatin (Nystop Powder) one application TP b.i.d. 20. Famotidine (Pepcid) 20 mg p.o. b.i.d. 21. Hydrocodone/Acetaminophen ([place] 5-325 tablet) one each p.o. q.6hr p.r.n. PAST MEDICAL/SURGICAL HISTORY: 1. I, Para I, AB 0 2. Ankle surgery in 1965 3. Exostosis from the right mastoid removed in 1965 4. [place] stays from 06/04/2014 through 06/05/2014 for shortness of breath in swing bed and above. HOSPITALIZATIONS/SURGERIES/PROCEDURES: [facility], admission from 03/04/1999 for COPD exacerbation; 2006 through 10/04/2006 for ventilator and COPD exacerbation; 06/05/2014 through 06/13/2014 for COPD, transferred to [facility], 06/13/2014 through 06/30/2014 for TCU; 03/17 through 04/03/17 LTAC for respiratory failure. SOCIAL HISTORY: Habits: Smoker age 21, one-half pack per day and says she quit in 2006 but she has resumed smoking. in 1988. 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 She has one son. FAMILY HISTORY: Skin cancer in father. Osteoporosis in mother. Emphysema in mother. Diabetes in father. REVIEW OF SYSTEMS: GENERAL: Inactive/slower with limits, speed, "SAMNL" for age and shortness of breath. Sleep is okay usually. No fever now. ENDOCRINE: No syncope, near or diaphoretic sweaty spells. HEENT: No head injury or headache. No vision change. Some mild hearing loss. Ears are without pain/drainage. No sore throat. No nasal/sinus congestion/ drainage. No epistaxis. CHEST: No chest wall tenderness or mass. Usual cough with wheeze, shortness of breath. No hemoptysis. CARDIOVASCULAR: No chest pain, palpitations, on/off occasional ankle edema. GASTROINTESTINAL: No heartburn, dysphagia. No abdominal pain, diarrhea, constipation, rectal bleeding, or melena. GENITOURINARY: Voids without dysuria or incontinence to completion. ORTHOPEDIC: No painful/swollen joints but various on/off sore. No sore neck or back. No acute neck or back pain without recent injury. Best at long term transfer/ wheelchair use. NEUROLOGIC: No dizziness, weakness of extremities. No numbness or paresthesias. PSYCHIATRIC: Oriented times three. Pleasant, calm, well-kept. Purposeful/ directed conversation with intact short/snf memory. PHYSICAL EXAMINATION: GENERAL: Ill-appearing, appropriate for age white female with BIPAP in no acute distress. Thin. INTEGUMENT: Skin turgor is excellent without wound, rash, lesion other than abrasion over nasal bridge. HEENT: Normocephalic without trauma. Pupils equal, round, reactive to light. Extraocular movements full without nystagmus. Ears: External canals nonobstructive, nontender, without redness. Tympanic membranes judi with bony structures intact. Mouth: Oral cavity without growths, exudates and is moist. Throat: Posterior pharynx without mass, obstruction or redness. NECK: Supple. No thyromegaly, mass, tenderness, lymphadenopathy. CV: Regular rhythm. No murmur or gallop. Trace equal lower extremity edema. Posterior pulses intact. No carotid bruit. CHEST: No chest wall tenderness or mass. LUNGS: Symmetric motion with coarse/reduced to auscultation. No dullness to percussion. ABDOMEN: Soft, nontender without mass ORTHO: Symmetric extremities without swelling/point tenderness. Full gross range of motion; mild weakness. NEURO: Cranial nerves 2-12 grossly intact. Symmetric facies. 0/4 times bicep equal reflexes. UE/LE 1-2/5 strength throughout. Nonfocal use of extremities. Speech is hoarse. PSYCH: Oriented times three. Pleasant, calm, well-kept. Purposeful/directed conversation with intact short/long gross memory. ASSESSMENT/PROBLEM LIST: 0. 71-year-old white female, advanced age. 1. Allergies/intolerances: See above. 2. Procedural history: See above. 3. Family history: See above. 4. 1, Para 1, AB 0. 5. Menopausal. 6. Tobacco/nicotine abuse/addiction. 7. Disability. 8. Congestive heart failure, diastolic by echocardiogram. 9. SVT. 10. Lanoxin therapy. 11. Chronic kidney disease, Stage 3. 12. COPD, end-stage. 13. Constipation, chronic. 14. Pulmonary hypertension. 15. Lower extremity edema. 16. Hyperlipidemia. 17. Hypothyroidism replace. 18. Chronic low back pain. 19. Chronic neck pain. 20. Respiratory failure, hypoxemic, ch ronic. 21. Respiratory failure, hypercarbia, chronic. 22. Shortness of breath, chronic. 23. Varicose veins. 24. Vitamin B12 deficiency. 25. Vitamin D deficiency. 26. History of ulcers of lower extremities. 27. Degenerative joint disease, diffuse. 28. Gait difficulties, chronic. 29. Thoracic aneurysm with dissection 5.3 cm (not amenable to intervention). 30. Anticoagulation - Xarelto (history of DVT, prevention DVT, atrial fib). REASONS FOR ADMISSION: # Acute respiratory failure on chronic-hypoxic and hypercarbic # Acidosis 7.06 (respiratory failure). # Pneumonia-NH/hospital exposed. # Shortness of breath. # COPD. # Adult failure to thrive. # Cardiac arrhythmias (paroxysmal atrial fibrillation/SVT. # Abnormal urine 3+ leuk, 30-50 WBC, 3+ bacteria # Malnutrition, decreased albumin HOSPITAL COURSE: The patient had to have several days of nebulized bronchodilators, steroids, IV antibiotics of Zosyn and Vancomycin; her respiratory status very slowly improved. Her chest x-ray likewise was slow to follow. She reached a plateau of requiring quite a bit of continued BIPAP/CPAP therapy. She never really got out of bed. Blood cultures were negative. Urine grew Klebsiella pneumoniae sensitive to the antibiotics listed. She was transitioned to several days of Augmentin. Her vitals basically remained stable except for brief episode of tachycardia. Her laboratories showed a pattern of anemia and occasionally hypopotassemia. She seemed at one point to become slightly volume overloaded and required IV diuresis. At that point, her BNP was 1229. We spent a great deal of time trying to find a place for her to go. Initially, [facility] turned her down as her readmit. [facility] did not also want to take her. We tried to get her back into the LTACH unit at [facility] as she had been in before but by then she didn't meet their criteria for severity. We discussed all this opening with her and her son and we pointed out that she was in the hospice situation and she accepted enrolling in hospice. At that point, [facility] felt they could provide her care. She is being discharged for an uncertain prognosis to that facility. DISCHARGE ASSESSMENT/PROBLEM LIST (CHANGED FROM ADMISSION): # Acute respiratory failure - chronic hypoxic and hypercarbic # Acidosis - 7.06 (secondary to respiratory failure) # Pneumonia - long term/hospital exposed # Shortness of breath # COPD # Failure to thrive # Cardiac arrhythmias (proximal atrial fib, SVT) # Klebsiella bacteruria - probably UTI - treated # Malnutrition # Hypopotassemia - diuretic influenced # Congestive heart failure- diastolic, chronic with possible acute component ( volume overload) # Decub - buttocks # Chronic steroids and the risk it carries PLAN: 1. Discharge back to [facility] 2. Medication list - see nursing reports a) [place] 5 one every 6 hours as needed for pain b) Dulcolax 10 once a day as needed for constipation c) Pulmicort 0.5 mg nebulized b.i.d. d) Calmoseptine ointment p.r.n. excoriation e) Lanoxin 250 mcg one a day f) Colace 100 mg twice a day g) Multaq 400 mg every 12 h) Pepcid 20 mg b.i.d. i) Lasix 20 once a day j) Atrovent 0.02% nebulized every 6 hr k) Xopenex 1.25 mg nebulized every 6 hr l) Synthroid 100 mcg once a day m) Amitiza 24 mcg at bedtime n) Lopressor 25 mg twice a day o) Nystat apply t.i.d. to intertriginous or rash areas p) [place] 20 once a day q) Xarelto 20 mg once a day 3. Refer to [facility] 4. CPAP settings have changed; BIPAP INS of 14, expiration of 6, rate of 20, FIO2 of 35; if not wearing this 3L nasal prong oxygen, one of these continuous 5. [place] - d/c on 05/21/17 6. Decub care for buttocks decub, low pressure mattress turn and reposition frequently as foundation therapy PROGNOSIS: Poor CONDITION: Improved and stable CC: [facility]
== END 2017-05-20 16:00 | disposition short-term general hospital (02) | DRG 189 ==
LOC: ED 07:22 → SCU 09:17
PROVIDERS: ADMIT Family Medicine; ATTEND Family Medicine
DX: J96.21 Acute and chronic respiratory failure with hypoxia (principal); J96.22 Acute and chronic respiratory failure with hypercapnia; J18.1 Lobar pneumonia, unspecified organism; I50.33 Acute on chronic diastolic (congestive) heart failure; N39.0 Urinary tract infection, site not specified; E87.2 Acidosis; I47.1 Supraventricular tachycardia; J44.9 Chronic obstructive pulmonary disease, unspecified; E46 Unspecified protein-calorie malnutrition; R41.82 Altered mental status, unspecified; R62.7 Adult failure to thrive; I48.0 Paroxysmal atrial fibrillation; B96.1 Klebsiella pneumoniae [K. pneumoniae] as the cause of diseases classified elsewhere; L89.329 Pressure ulcer of left buttock, unspecified stage; L89.319 Pressure ulcer of right buttock, unspecified stage; Y95 Nosocomial condition; F17.200 Nicotine dependence, unspecified, uncomplicated; E87.6 Hypokalemia; R05 Cough; Z79.01 Long term (current) use of anticoagulants; Z79.52 Long term (current) use of systemic steroids; Z79.899 Other long term (current) drug therapy; Z86.718 Personal history of other venous thrombosis and embolism; Z16.11 Resistance to penicillins
CPT/HCPCS: 36415; 80048; 80053; 81001; 82550; 82803; 82962; 83605; 83880; 84145; 84484; 85007; 85025; 87040; 87081; 87086; 87186; 93005; 93010; 94640; 94660; 96365; 99285